=== PATIENT | male | born 1940 | race African-American/Black ===

== ENCOUNTER 2019-02-09 09:54 | Emergency (ER) | payer OTHER, BC ==
[2019-02-09 10:07] VITALS: TEMP 99.5; BMI 25.8
[2019-02-09] MEDS ORDERED: ALBUTEROL SO4 2.5/IPRATROPIUM 0.5 INH SOL 3 ML VIAL.NEB. NEB ONE ×3 (11:21→12:54)
[2019-02-09] MEDS ORDERED: methylPREDNISolone NA SUCC 125 MG/2 ML VIAL IVPB ONE (11:31)
--- NOTE | 2019-02-09 11:32 | PDOC ---
History of Present Illness <Jessi Galeana - Last Filed: 02/09/19 16:05> - General History Source: Patient Exam Limitations: No Limitations - History of Present Illness Initial Comments: 02/09/19 11:31 78 yo M with htn, hld, asthma, and gout presents with 2 weeks of worsening SOB and cough with acute worsening since last night. Per the patient, he states he has been using his albuterol nebulizer daily. In addition, the patient has had non productive cough for the past 2 weeks. Denies the following: fever, chills, chest pain, abdominal pain, nausea, vomiting, dysuria, hematuria, diarrhea, hematochezia, melena, and leg pain/swelling. Denies having a cardiac stress test in the past. Allergies: NKDA Social: Denies tobacco, alcohol, and substance abuse. <Leo Sanchez - Last Filed: 02/09/19 18:54> - General Chief Complaint: Shortness of Breath Stated Complaint: ASTHMA Time Seen by Provider: 02/09/19 10:34 Past History <Jessi Galeanajaecadence - Last Filed: 02/09/19 16:05> - Past Medical History Asthma: Yes Cardiac Disorders: Yes ([place] 2002) COPD: No HTN: Yes Hypercholesterolemia: Yes - Surgical History Orthopedic Surgery: Yes (epidural) - Psycho Social/Smoking Cessation Hx Smoking Status: No Smoking History: Current every day smoker Have you smoked in the past 12 months: Yes Number of Cigarettes Smoked Daily: 3 If you are a former smoker, when did you quit?: 2016 Information on smoking cessation initiated: Yes 'Breaking Loose' booklet given: 05/15/15 Hx Alcohol Use: No Drug/Substance Use Hx: No Substance Use Type: Alcohol Hx Substance Use Treatment: No <Leo Sanchez - Last Filed: 02/09/19 18:54> - Past Medical History Allergies/Adverse Reactions: Allergies Allergy/AdvReac Type Severity Reaction Status Date / Time No Known Allergies Allergy Verified 02/09/19 10:03 Home Medications: Ambulatory Orders Diclofenac Sodium/Misoprostol [Arthrotec EC 75 mg-200 Mcg Tab] 1 each PO BID #0 tablet. 08/12/11 Gabapentin [Neurontin -] 300 mg PO TID #0 capsule 08/12/11 Montelukast Na [Singulair -] 10 mg PO HS #0 tablet 08/12/11 Nisoldipine 8.5 mg PO DAILY #0 tab.er.24h 08/12/11 Atorvastatin Ca [Lipitor] 40 mg PO HS 05/15/15 Fluticasone Propionate [Flovent Hfa] 10.6 gm IH DAILY 05/15/15 Albuterol Sulfate Inhaler - [Ventolin HFA Inhaler -] 1 inh IH Q4H #1 inh Azithromycin 500 mg PO DAILY #2 tablet 05/19/15 Cefuroxime Axetil [Ceftin] 500 mg PO BID #4 tablet 05/19/15 Magnesium Oxide [Mag-Ox -] 400 mg PO DAILY #7 tablet 05/19/15 predniSONE [Deltasone -] 40 mg PO BID #14 tablet 05/19/15 Albuterol 0.083% Nebulizer Yanira [Ventolin 0.083% Nebulizer Soln -] 1 neb NEB Q6H PRN #28 vial 02/09/19 Albuterol Sulfate Inhaler - [Ventolin HFA Inhaler -] 1 - 2 inh PO Q4H PRN #1 inhaler 02/09/19 Prednisone [Prednisone 50 MG TABLETS] 50 mg PO DAILY 4 Days #4 tablet 02/09/19 Review of Systems - Review of Systems Able to Perform ROS?: Yes Is the patient limited [place] proficient: No Constitutional: No: Chills, Diaphoresis, Fever HEENTM: No: Eye Pain, Ear Pain, Nose Pain, Throat Pain, Mouth Pain Respiratory: Yes: Cough, Shortness of Breath. No: Hemoptysis Cardiac (ROS): No: Chest Pain, Lightheadedness, Palpitations, Syncope, Chest Tightness ABD/GI: No: Constipated, Diarrhea, Nausea, Rectal Bleeding, Vomiting, Tarry Stools : No: Burning, Dysuria, Hematuria, Incontinence, Pain Musculoskeletal: No: Back Pain, Gout, Joint Pain Integumentary: No: Bruising, Flushing, Lesions Neurological: No: Headache, Numbness, Tingling, Tremors Psychiatric: No: Change in Appetite Endocrine: No: Unexplained Weight Loss Hematologic/Lymphatic: No: Anemia <Leo Sanchez - Last Filed: 02/09/19 18:54> *Physical Exam - Vital Signs Last Vital Signs Temp Pulse Resp BP Pulse Ox 99.5 F 101 H 22 H 158/80 97 02/09/19 10:03 02/09/19 10:03 02/09/19 10:03 02/09/19 10:03 02/09/19 10:03 <LissettJessi Stephen - Last Filed: 02/09/19 16:05> - Vital Signs Last Vital Signs Temp Pulse Resp BP Pulse Ox 99.5 F 101 H 22 H 158/80 97 02/09/19 10:03 02/09/19 10:03 02/09/19 10:03 02/09/19 10:03 02/09/19 10:03 - Physical Exam General Appearance: Yes: Nourished, Appropriately Dressed. No: Apparent Distress, Obese HEENT: positive: EOMI, SOWMYA, Normal Voice, Symmetrical, Pharynx Normal, Hearing Grossly Normal. negative: Pale Conjunctivae, Scleral Icterus (R), Scleral Icterus (L), Muffled/Hoarse voice, Pharyngeal Erythema, Tonsillar Exudate, Tonsillar Erythema, Excessive drooling Neck: positive: Trachea midline, Supple. negative: Tender, Lymphadenopathy (R) , Lymphadenopathy (L), Tender lateral, Tender midline Respiratory/Chest: positive: Rhonchi (right side lower lung), Wheezing ( bilaterally). negative: Chest Tender, Respiratory Distress, Accessory Muscle Use Cardiovascular: positive: Regular Rhythm, Regular Rate, S1, S2. negative: Systolic Murmur Gastrointestinal/Abdominal: positive: Normal Bowel Sounds, Flat, Soft. negative : Tender, Rebound, Tenderness, Hernia Lymphatic: negative: Adenopathy Musculoskeletal: positive: Normal Inspection. negative: CVA Tenderness, Vertebral Tenderness Extremity: positive: Normal Capillary Refill, Normal Inspection, Normal Range of Motion. negative: Tender, Swelling, Calf Tenderness Integumentary: positive: Normal Color, Dry, Warm. negative: Hives, Petechiae, Swelling, Ecchymosis Neurologic: positive: sales rep II-XII NML intact, Fully Oriented, Alert, Normal Mood/ Affect, Normal Response, Motor Strength 5/5 <Leo Sanchez - Last Filed: 02/09/19 18:54> ED Treatment Course - LABORATORY CBC & Chemistry Diagram: 02/09/19 12:55 02/09/19 12:55 - ADDITIONAL ORDERS Additional order review: Laboratory Results 02/09/19 02/09/19 12:55 12:55 Sodium 142 Potassium 5.1 Chloride 114 H Carbon Dioxide 21 Anion Gap 7 L BUN 29.1 H Creatinine 2.7 H Est GFR (CKD-EPI)AfAm 24.86 Est GFR (CKD-EPI)NonAf 21.45 Random Glucose 112 H Lactic Acid 1.5 Calcium 8.7 Total Bilirubin 0.5 AST 11 L ALT 16 Alkaline Phosphatase 237 H Creatine Kinase 382 H Creatine Kinase Index 0.6 CK-MB (CK-2) 2.4 Troponin I < 0.02 B-Natriuretic Peptide 72.9 Total Protein 7.4 Albumin 3.8 02/09/19 12:55 RBC 4.12 MCV 95.8 MCHC 32.6 RDW 14.7 MPV 9.1 D Neutrophils % 75.0 Lymphocytes % 15.0 Monocytes % 5.7 D Eosinophils % 3.1 D Basophils % 1.2 D - RADIOLOGY Radiology Studies Ordered: Category Date Time Status CHEST PA & LAT [RAD] Stat Radiology 02/09/19 10:35 Completed - Medications Given in the ED: ED Medications Discontinued Medications Generic Name Dose Route Start Last Admin Trade Name David PRN Reason Stop Dose Admin Albuterol/Ipratropium 3 amp 02/09/19 11:21 02/09/19 13:08 Duoneb - NEB 02/09/19 11:22 3 amp ONCE ONE Administration Methylprednisolone Sodium Succinate 125 mg 02/09/19 11:31 02/09/19 13:08 Solu-Medrol - IVPB 02/09/19 11:32 125 mg ONCE ONE Administration <Jessi Galeana - Last Filed: 02/09/19 16:05> - LABORATORY CBC & Chemistry Diagram: 02/09/19 12:55 02/09/19 12:55 <Leo Sanchez - Last Filed: 02/09/19 18:54> Medical Decision Making - Medical Decision Making 02/09/19 13:16 78 yo M with htn, hld, asthma, and gout presents with 2 weeks of worsening SOB and cough with acute worsening since last night. Per the patient, he states he has been using his albuterol nebulizer daily. Initial vitals: Initial Vital Signs Temp Pulse Resp BP Pulse Ox 99.5 F 101 H 22 H 158/80 97 02/09/19 10:03 02/09/19 10:03 02/09/19 10:03 02/09/19 10:03 02/09/19 10:03 98.7 F on rectal Work up: rule out pna. rule out acs. patient given duoneb x3 and solumedrol. Laboratory Tests 02/09/19 02/09/19 02/09/19 12:55 12:55 12:55 WBC 7.6 RBC 4.12 Hgb 12.9 Hct 39.5 D MCV 95.8 MCH 31.2 MCHC 32.6 RDW 14.7 Plt Count 257 MPV 9.1 D Absolute Neuts (auto) 5.7 Neutrophils % 75.0 Lymphocytes % 15.0 Monocytes % 5.7 D Eosinophils % 3.1 D Basophils % 1.2 D Nucleated RBC % 0 Sodium 142 Potassium 5.1 Chloride 114 H Carbon Dioxide 21 Anion Gap 7 L BUN 29.1 H Creatinine 2.7 H Est GFR (CKD-EPI)AfAm 24.86 Est GFR (CKD-EPI)NonAf 21.45 Random Glucose 112 H Lactic Acid Calcium 8.7 Total Bilirubin 0.5 AST 11 L ALT 16 Alkaline Phosphatase 237 H Creatine Kinase 382 H Creatine Kinase Index 0.6 CK-MB (CK-2) 2.4 Troponin I < 0.02 B-Natriuretic Peptide 72.9 Total Protein 7.4 Albumin 3.8 Influenza A (Rapid) Negative Influenza B (Rapid) Negative 02/09/19 12:55 WBC RBC Hgb Hct MCV MCH MCHC RDW Plt Count MPV Absolute Neuts (auto) Neutrophils % Lymphocytes % Monocytes % Eosinophils % Basophils % Nucleated RBC % Sodium Potassium Chloride Carbon Dioxide Anion Gap BUN Creatinine Est GFR (CKD-EPI)AfAm Est GFR (CKD-EPI)NonAf Random Glucose Lactic Acid 1.5 Calcium Total Bilirubin AST ALT Alkaline Phosphatase Creatine Kinase Creatine Kinase Index CK-MB (CK-2) Troponin I B-Natriuretic Peptide Total Protein Albumin Influenza A (Rapid) Influenza B (Rapid) CXR was within normal limits; no acute process. The patient improved with duonebs. Lungs were clear to auscultation. Labs show KENYON but he is near baseline. I advised the patient to stop his celebrex given the KENYON. Patient was given prednisone in the department and advised to follow up with his PMD (Dr. Aaron). Dispo: Discharge <Leo Sanchez - Last Filed: 02/09/19 18:54> Discharge - Discharge Information Problems reviewed: Yes - Admission No <Jessi Galeana - Last Filed: 02/09/19 16:05> - Discharge Information Problems reviewed: Yes <Leo Sanchez - Last Filed: 02/09/19 18:54> - Discharge Information Clinical Impression/Diagnosis: Asthma Qualifiers: Asthma severity: unspecified severity Asthma persistence: unspecified Asthma complication type: unspecified Qualified Code(s): J45.909 - Unspecified asthma, uncomplicated Acute bronchitis Qualifiers: Bronchitis organism: other organism Qualified Code(s): J20.8 - Acute bronchitis due to other specified organisms Condition: Improved Disposition: HOME - Additional Discharge Information Prescriptions: Albuterol 0.083% Nebulizer Yanira [Ventolin 0.083% Nebulizer Soln -] 1 neb NEB Q6H PRN #28 vial PRN Reason: Asthma Albuterol Sulfate Inhaler - [Ventolin HFA Inhaler -] 1 - 2 inh PO Q4H PRN #1 inhaler PRN Reason: Asthma Prednisone [Prednisone 50 MG TABLETS] 50 mg PO DAILY 4 Days #4 tablet - Follow up/Referral Referrals: Skip Aaron MD [Primary Care Provider] - - Patient Discharge Instructions Patient Printed Discharge Instructions: DI for Asthma -- Adult, DI for Acute Bronchitis Additional Instructions: 1) Please follow-up with your primary care doctor in the next 1-2 days. Please call tomorrow for for any urgent issues. 2) You were given a copy of the tests performed today. Please bring the results with you and review them with your primary care doctor. Your laboratory / imaging results were normal, 3) If you have any worsening of symptoms or any other concerns please return to the ED immediately. Return if worsening symptoms including fevers, headache, vomiting, visual or hearing disturbances, abdominal pain, chest pain, shortness of breath, syncope, dehydration, inability to take things by mouth/vomiting, altered mental status, or worsening concerning symptoms. 4) Please continue taking your home medications as directed. your medications on discharge include prednisone x 4 more days. . side effects may include upset stomach, abdominal pain, vomiting, or diarrhea. do not drink alcohol with your medications. Stay well hydrated and rest adequately. Make an appointment. If you cannot follow-up with your primary care doctor please return to the ED - Post Discharge Activity
[2019-02-09] MEDS ORDERED: methylPREDNISolone NA SUCC 125 MG/2 ML VIAL ONE (12:50)
--- NOTE | 2019-02-09 12:55 | PDOC ---
Attending Attestation - Resident Resident Name: Leo Sanchez - ED Attending Attestation I have performed the following: I have examined & evaluated the patient, The case was reviewed & discussed with the resident, I agree w/resident's findings & plan - HPI HPI: 02/09/19 12:55 78 yo M with htn, hld, asthma, and gout, pneumonia presents with 2 weeks of worsening SOB and cough with acute worsening since last night. Per the patient, he states he has been using his albuterol nebulizer daily. 02/09/19 13:50 - Physicial Exam PE: 02/09/19 12:55 Agree with the resident's HPI and PE as documented in the electronic medical record. NAD, well appearing, EOMI, PERRL, nl conjunctiva, anicteric; neck supple.bilateral expiratory wheezing, no murmurs, RRR, abdomen soft nontender. no rebound, guarding. Back nontender. LUIS x4, no focal neuro deficits. No peripheral edema. normal color for ethnicity, WWP. no calf tenderness - Medical Decision Making 02/09/19 12:56 Vital Signs Temp Pulse Resp BP Pulse Ox 99.5 F 101 H 22 H 158/80 97 02/09/19 10:03 02/09/19 10:03 02/09/19 10:03 02/09/19 10:03 02/09/19 10:03 DDx SOB: ACS, PE, PTX, CHF, COPD exac, pulmonary edema, pleurisy, pneumonia, viral syndrome. effusion. anemia, electrolyte/metabolic derangements. influenza. Considered but clinically doubt based on HPI and PE: Low suspicion for pulmonary embolism or dissection. Interventions include albuterol/Atrovent nebulizers for acute wheezing/asthma exacerbation. IV Solu-Medrol, reassess. 02/09/19 12:56 CXR clear, no e/o pna labs and lytes_baseline Cr function, lytes normal. CBC normal. trop neg bnp neg, unlikely cardiomyopathy or CHF/overload. less likely cardiac, no cp or sob, speaking full sentences. Pt to be discharged in stable condition. Patient and family made aware of clinical impression, treatment recommendations and disposition plan, return precautions discussed (including but not limited to new or persistent/worsening symptoms, pain, fevers, or signs of infection, chest pain, respiratory distress , inability to tolerate oral intake, dehydration, syncope, or neurologic changes ). Follow up with PMD as recommended, follow up information provided, take medications as instructed for duration of time. continue with supportive care, avoid triggers and precipitants. All questions answered to patient's satisfaction and expressed understanding and comfort with this. At the time of discharge, the patient is alert, clinically improved, tolerating po and verbalizes understanding of instructions, satisfied with the care received and felt comfortable with the plan. Patient does not suffer from an acute life- threatening medical condition at this time and is safe for outpatient follow- up. 02/09/19 14:01 02/09/19 16:25 Heart Score/ECG Review #1 ECG reviewed & interpreted by me at: 10:05 General ECG Interpretation: Sinus Rhythm, Normal Intervals Compared to previous ECG there are: Previous ECG unavail 02/09/19 12:57 EKG sinus tachy at 107 bpm, no interval abnormalities, narrow QRS, ST and T wave segments and morphology normal. Nonspecific T wave abnormalities some limitations with artifact.
[2019-02-09 13:19] LABS: BASO % 1.2 % (0-2.0); EOS % 3.1 % (0-4.5); HEMATOCRIT 39.5 % (35.4-49); HEMOGLOBIN 12.9 GM/dL (11.7-16.9); MCH 31.2 pg (25.7-33.7); MCHC 32.6 g/dl (32.0-35.9); MEAN CELL VOLUME 95.8 fl (80-96); MEAN PLT VOLUME 9.1 fl (7.5-11.1); MONO % 5.7 % (3.8-10.2); PLATELET COUNT 257 K/MM3 (134-434); RBC 4.12 M/mm3 (4.00-5.60); RDW 14.7 % (11.9-15.9); WHITE BLOOD COUNT 7.6 K/mm3 (4.0-10.0)
[2019-02-09 13:57] LABS: ALBUMIN 3.8 g/dl (3.4-5.0); ALK PHOS 237 U/L (45-117); ANION GAP 7 MMOL/L (8-16); BILIRUBIN,TOTAL 0.5 mg/dL (0.2-1); BLOOD UREA NITROGEN 29.1 mg/dL (7-18); CALCIUM 8.7 mg/dL (8.5-10.1); CHLORIDE 114 mmol/L (98-107); CO2 21 mmol/L (21-32); CREATININE 2.7 mg/dL (0.55-1.3); GLUCOSE,RANDOM 112 mg/dL (74-106); N-TERMINAL BNP 72.9 pg/ml (5-450); POTASSIUM 5.1 mmol/L (3.5-5.1); SGOT/AST 11 U/L (15-37); SGPT/ALT 16 U/L (13-61); SODIUM 142 mmol/L (136-145); TOT PROT 7.4 g/dl (6.4-8.2)
[2019-02-09] MEDS ORDERED: SODIUM CHLORIDE 1,000 ML IV STA (14:41)
[2019-02-09] MEDS ORDERED: predniSONE 20 MG TABLET (UD) PO ONE (16:05)
[2019-02-09 16:12] VITALS: BP 145/75; PULSE 94
[2019-02-09] MEDS ORDERED: predniSONE 20 MG TABLET (UD) ONE (16:37)
[2019-02-09] MEDS ORDERED: predniSONE 10 MG TABLET (UD) ONE (16:38)
--- NOTE | 2019-02-11 10:15 | EKG ---
Test Reason : Blood Pressure : / mmHG Vent. Rate : 107 BPM Atrial Rate : 105 BPM P-R Int : 000 ms QRS Dur : 072 ms QT Int : 318 ms P-R-T Axes : 000 005 062 degrees QTc Int : 424 ms SINUS TACHYCARDIA NONSPECIFIC ST AND T WAVE ABNORMALITY ABNORMAL ECG WHEN COMPARED WITH ECG OF 16-MAY-2015 13:17, VENT. RATE HAS INCREASED Confirmed by FRANCO PETERSON MD ([id number]) on 02/11/2019 10:14:53 AM Referred By: Confirmed By:FRANCO PEETRSON MD
== END 2019-02-09 16:30 | disposition home or self-care (01) ==
LOC: JER 09:54
PROC: 3E0F7GC Introduction of Other Therapeutic Substance into Respiratory Tract, Via Natural or Artificial Opening (ICD-10-PCS; principal; 2019-02-09)
PROC: 3E0337Z Introduction of Electrolytic and Water Balance Substance into Peripheral Vein, Percutaneous Approach (ICD-10-PCS; 2019-02-09)
PROC: 3E0333Z Introduction of Anti-inflammatory into Peripheral Vein, Percutaneous Approach (ICD-10-PCS; 2019-02-09)
DX: J20.8 Acute bronchitis due to other specified organisms (principal); J45.909 Unspecified asthma, uncomplicated; I25.10 Atherosclerotic heart disease of native coronary artery without angina pectoris; I10 Essential (primary) hypertension; I25.2 Old myocardial infarction; E78.00 Pure hypercholesterolemia, unspecified; M10.9 Gout, unspecified; F17.210 Nicotine dependence, cigarettes, uncomplicated
CPT/HCPCS: 36415; 71046-TC-FY; 80053; 82550; 82553; 83605; 83880; 84484; 85025; 87804; 93005; 93010; 94640; 96361; 96374; 99283-25; J7030

== ENCOUNTER 2020-09-30 18:50 | Inpatient (IN) | payer OTHER, BC ==
[2020-09-30 19:37] VITALS: BMI 21.5
[2020-09-30] MEDS ORDERED: SODIUM CHLORIDE 0.9% 500 ML INFUS.BAG IV ONE (20:03)
[2020-09-30 20:53] LABS: BASO % 0.9 % (0-2.0); EOS % 0.2 % (0-4.5); HEMATOCRIT 35.4 % (35.4-49); HEMOGLOBIN 11.6 GM/dL (11.7-16.9); LYMPH % 21.7 % (8-40); MCH 32.9 pg (25.7-33.7); MCHC 32.6 g/dl (32.0-35.9); MEAN CELL VOLUME 100.7 fl (80-96); MEAN PLT VOLUME 8.7 fl (7.5-11.1); MONO % 9.2 % (3.8-10.2); PLATELET COUNT 208 10^3/uL (134-434); RBC 3.51 M/mm3 (4.00-5.60); RDW 13.4 % (11.9-15.9); WHITE BLOOD COUNT 8.9 K/mm3 (4.0-10.0)
[2020-09-30 21:05] LABS: INR 0.96 (0.83-1.09); PROTHROMBIN TIME (PATIENT) 11.6 SEC (9.7-13.0)
[2020-09-30 21:11] LABS: CHLORIDE 101 mmol/L (98-107); SODIUM 132 mmol/L (136-145)
[2020-09-30 21:13] LABS: ALBUMIN 3.2 g/dl (3.4-5.0); CALCIUM 7.4 mg/dL (8.5-10.1); CO2 11 mmol/L (21-32)
[2020-09-30 21:14] LABS: BLOOD UREA NITROGEN 97.6 mg/dL (7-18); GLUCOSE,RANDOM 115 mg/dL (74-106)
[2020-09-30] MEDS ORDERED: LACTATED RINGERS SOLUTION 1000 ML INFUS.BAG IV ONE (21:16)
[2020-09-30 21:17] LABS: SGOT/AST 49 U/L (15-37); SGPT/ALT 45 U/L (13-61)
[2020-09-30 21:18] LABS: BILIRUBIN,TOTAL 0.5 mg/dL (0.2-1); TOT PROT 6.3 g/dl (6.4-8.2)
[2020-09-30 21:19] LABS: ALK PHOS 132 U/L (45-117)
[2020-09-30 21:58] LABS: ANION GAP 20 MMOL/L (8-16)
[2020-09-30 23:34] LABS: CALCIUM 7.5 mg/dL (8.5-10.1)
[2020-09-30 23:35] LABS: BLOOD UREA NITROGEN 87.4 mg/dL (7-18)
[2020-10-01] MEDS ORDERED: DEXTROSE 5%-LACTATED RINGERS 1,000 ML IV SCH (01:30)
[2020-10-01] MEDS ORDERED: LACTATED RINGERS SOLUTION 1000 ML INFUS.BAG IV ONE (01:34)
[2020-10-01 01:42] LABS: URINE APPEARANCE CLEAR; URINE BILIRUBIN NEGATIVE (NEGATIVE); URINE COLOR YELLOW; URINE GLUCOSE (UA) NEGATIVE (NEGATIVE); URINE KETONE 1+ (NEGATIVE); URINE LEUK ESTERASE NEGATIVE (NEGATIVE); URINE NITRITE NEGATIVE (NEGATIVE); URINE PROTEIN NEGATIVE (NEGATIVE)
[2020-10-01] MEDS ORDERED: ALBUTEROL SO4 0.083% IH SOL 2.5 MG/3 ML VIAL.NEB. NEB PRN (08:09)
[2020-10-01] MEDS ORDERED: TAMSULOSIN HCL 0.4 MG CAP ONE (08:44)
[2020-10-01] MEDS: TAMSULOSIN HCL 0.4 MG CAP PO SCH (08:46)
[2020-10-01] MEDS ORDERED: amLODIPine BESYLATE 5 MG TABLET (FP) PO SCH (10:00)
[2020-10-01] MEDS: BUDESONIDE/FORMETEROL FUMARATE 160/4.5 mcg INHALER IH SCH (10:05)
[2020-10-01] MEDS ORDERED: ENOXAPARIN NA (PORCINE) 30 MG/0.3 ML DISP.SYRIN SQ ONE (12:18)
[2020-10-01] MEDS: ENOXAPARIN NA (PORCINE) 30 MG/0.3 ML DISP.SYRIN SQ SCH (12:20)
[2020-10-01] MEDS: INSULIN SLIDING SCALE (NOVOLOG) 1 VIAL SQ SCH ×3 (12:21→21:24)
[2020-10-01] MEDS ORDERED: FLU VACCINE (FLULAVAL) PF 60 MCG/0.5 ML SYRINGE 2020-2021 IM ONE (16:19)
[2020-10-01] MEDS: SODIUM CHLORIDE 0.45% 1,000 ML IV SCH (17:52)
[2020-10-01] MEDS ORDERED: SODIUM CHLORIDE 1,000 ML IV STA (19:03)
[2020-10-01] MEDS ORDERED: CALCIUM GLUCONATE IN NACL 1 GM/50 ML BAG IVPB ONE (19:06)
[2020-10-01] MEDS ORDERED: SODIUM BICARBONATE 8.4% 50 MEQ/50 ML DISP.SYRIN IVPUSH ONE (19:06)
[2020-10-01] MEDS ORDERED: SODIUM ZIRCONIUM CYCLOSILICATE (LOKELMA) 5 GM PACKET PO SCH (19:15)
[2020-10-01 20:24] LABS: BLOOD UREA NITROGEN 83.2 mg/dL (7-18); CALCIUM 8.2 mg/dL (8.5-10.1)
[2020-10-01 20:28] LABS: CREATININE 2.5 mg/dL (0.55-1.3)
[2020-10-01] MEDS: SODIUM BICARBONATE 650 MG TABLET PO SCH ×2 (20:31→21:18)
[2020-10-01 21:01] LABS: ALLENS TEST POSITIVE; ARTERIAL BLD GAS O2 SATURATION 97.8 mmHg (95-98); ARTERIAL BLOOD GAS BASE EXCESS -7.3 mmol/L (-2-2); ARTERIAL BLOOD GAS PO2 103.6 mmHg (80-100); ARTERIAL BLOOD GAS pH 7.383 (7.350-7.450)
[2020-10-01 21:02] LABS: PT'S TEMP 98.4
[2020-10-01] MEDS: ATORVASTATIN CA 40 MG TABLET (FP) PO SCH (21:18)
[2020-10-01] MEDS: MONTELUKAST NA 10 MG TABLET PO SCH (21:18)
[2020-10-02] MEDS: SODIUM BICARBONATE 650 MG TABLET PO SCH ×2 (05:03→13:37)
[2020-10-02] MEDS: INSULIN SLIDING SCALE (NOVOLOG) 1 VIAL SQ SCH ×3 (06:47→17:42)
[2020-10-02 08:12] LABS: BASO % 1.4 % (0-2.0); EOS % 1.7 % (0-4.5); HEMATOCRIT 33.8 % (35.4-49); HEMOGLOBIN 11.2 GM/dL (11.7-16.9); LYMPH % 43.8 % (8-40); MCH 32.3 pg (25.7-33.7); MCHC 33.3 g/dl (32.0-35.9); MEAN CELL VOLUME 97.2 fl (80-96); MEAN PLT VOLUME 8.8 fl (7.5-11.1); MONO % 9.9 % (3.8-10.2); NEUT % 43.2 % (42.8-82.8); PLATELET COUNT 190 10^3/uL (134-434); RBC 3.48 M/mm3 (4.00-5.60); RDW 13.2 % (11.9-15.9); WHITE BLOOD COUNT 6.2 K/mm3 (4.0-10.0)
[2020-10-02 08:31] LABS: BASO % 1.3 % (0-2.0); EOS % 2.1 % (0-4.5); HEMATOCRIT 35.7 % (35.4-49); HEMOGLOBIN 11.5 GM/dL (11.7-16.9); LYMPH % 40.1 % (8-40); MCH 32.2 pg (25.7-33.7); MCHC 32.4 g/dl (32.0-35.9); MEAN CELL VOLUME 99.5 fl (80-96); MEAN PLT VOLUME 8.7 fl (7.5-11.1); MONO % 9.5 % (3.8-10.2); PLATELET COUNT 179 10^3/uL (134-434); RBC 3.59 M/mm3 (4.00-5.60); RDW 13.5 % (11.9-15.9); WHITE BLOOD COUNT 5.2 K/mm3 (4.0-10.0)
[2020-10-02] MEDS ORDERED: PT OWN MED DRAWER 7, Y5N ONE ×2 (08:33→11:24)
[2020-10-02 08:36] LABS: CALCIUM 8.3 mg/dL (8.5-10.1)
[2020-10-02 08:37] LABS: ALBUMIN 2.8 g/dl (3.4-5.0); BLOOD UREA NITROGEN 63.1 mg/dL (7-18)
[2020-10-02 08:40] LABS: CREATININE 2.1 mg/dL (0.55-1.3)
[2020-10-02 08:41] LABS: BILIRUBIN,TOTAL 0.7 mg/dL (0.2-1); TOT PROT 5.8 g/dl (6.4-8.2)
[2020-10-02 08:54] LABS: ALBUMIN 3.1 g/dl (3.4-5.0); BLOOD UREA NITROGEN 71.4 mg/dL (7-18)
[2020-10-02 08:58] LABS: CREATININE 2.1 mg/dL (0.55-1.3)
[2020-10-02 08:59] LABS: BILIRUBIN,TOTAL 0.8 mg/dL (0.2-1)
[2020-10-02 09:02] LABS: CALCIUM 8.7 mg/dL (8.5-10.1); N-TERMINAL BNP 1960.5 pg/ml (5-450)
[2020-10-02] MEDS: TAMSULOSIN HCL 0.4 MG CAP PO SCH (09:51)
[2020-10-02] MEDS: ENOXAPARIN NA (PORCINE) 30 MG/0.3 ML DISP.SYRIN SQ SCH (09:51)
[2020-10-02] MEDS: BUDESONIDE/FORMETEROL FUMARATE 160/4.5 mcg INHALER IH SCH (11:42)
[2020-10-02] MEDS: SODIUM CHLORIDE 0.45% 1,000 ML IV SCH (17:42)
[2020-10-02] MEDS: MONTELUKAST NA 10 MG TABLET PO SCH (21:15)
[2020-10-02] MEDS: ATORVASTATIN CA 40 MG TABLET (FP) PO SCH (21:15)
[2020-10-03] MEDS: INSULIN SLIDING SCALE (NOVOLOG) 1 VIAL SQ SCH ×2 (06:33→16:02)
[2020-10-03 08:23] LABS: CHLORIDE 109 mmol/L (98-107); SODIUM 139 mmol/L (136-145)
[2020-10-03 08:33] LABS: CALCIUM 8.3 mg/dL (8.5-10.1)
[2020-10-03] MEDS: ENOXAPARIN NA (PORCINE) 30 MG/0.3 ML DISP.SYRIN SQ SCH ×2 (08:33→09:25)
[2020-10-03] MEDS: BUDESONIDE/FORMETEROL FUMARATE 160/4.5 mcg INHALER IH SCH ×2 (08:33→09:25)
[2020-10-03] MEDS: TAMSULOSIN HCL 0.4 MG CAP PO SCH (08:33)
[2020-10-03 08:34] LABS: ALBUMIN 3.1 g/dl (3.4-5.0); ANION GAP 10 MMOL/L (8-16); BLOOD UREA NITROGEN 48.7 mg/dL (7-18); CO2 20 mmol/L (21-32); GLUCOSE,RANDOM 77 mg/dL (74-106)
[2020-10-03 08:36] LABS: CREATININE 1.7 mg/dL (0.55-1.3); SGOT/AST 39 U/L (15-37); SGPT/ALT 37 U/L (13-61)
[2020-10-03 08:39] LABS: ALK PHOS 119 U/L (45-117)
[2020-10-03 08:40] LABS: BILIRUBIN,TOTAL 0.8 mg/dL (0.2-1)
[2020-10-03] MEDS: SODIUM CHLORIDE 0.45% 1,000 ML IV SCH (18:01)
[2020-10-03] MEDS: ATORVASTATIN CA 40 MG TABLET (FP) PO SCH (22:36)
[2020-10-03] MEDS: MONTELUKAST NA 10 MG TABLET PO SCH (22:36)
[2020-10-04] MEDS: INSULIN SLIDING SCALE (NOVOLOG) 1 VIAL SQ SCH ×2 (06:25→18:47)
[2020-10-04] MEDS ORDERED: ACETAMINOPHEN 325 MG TABLET (FP) ONE (08:27)
[2020-10-04] MEDS: ENOXAPARIN NA (PORCINE) 30 MG/0.3 ML DISP.SYRIN SQ SCH (09:16)
[2020-10-04] MEDS: TAMSULOSIN HCL 0.4 MG CAP PO SCH (09:17)
[2020-10-04] MEDS: BUDESONIDE/FORMETEROL FUMARATE 160/4.5 mcg INHALER IH SCH (09:17)
[2020-10-04] MEDS: SODIUM CHLORIDE 0.45% 1,000 ML IV SCH ×2 (12:28→18:41)
[2020-10-04] MEDS: MONTELUKAST NA 10 MG TABLET PO SCH (22:20)
[2020-10-04] MEDS: ATORVASTATIN CA 40 MG TABLET (FP) PO SCH (22:20)
[2020-10-05] MEDS: INSULIN SLIDING SCALE (NOVOLOG) 1 VIAL SQ SCH ×2 (06:16→18:12)
[2020-10-05 06:54] LABS: BASO % 1.1 % (0-2.0); EOS % 2.9 % (0-4.5); HEMATOCRIT 29.5 % (35.4-49); LYMPH % 31.7 % (8-40); MCH 32.8 pg (25.7-33.7); MCHC 33.8 g/dl (32.0-35.9); MEAN PLT VOLUME 9.1 fl (7.5-11.1); MONO % 8.4 % (3.8-10.2); NEUT % 55.9 % (42.8-82.8); PLATELET COUNT 148 10^3/uL (134-434); RBC 3.04 M/mm3 (4.00-5.60); RDW 13.2 % (11.9-15.9); WHITE BLOOD COUNT 5.9 K/mm3 (4.0-10.0)
[2020-10-05 07:17] LABS: ALBUMIN 2.6 g/dl (3.4-5.0)
[2020-10-05 07:18] LABS: CALCIUM 7.5 mg/dL (8.5-10.1)
[2020-10-05 07:21] LABS: CREATININE 1.3 mg/dL (0.55-1.3)
[2020-10-05 07:22] LABS: BLOOD UREA NITROGEN 34.1 mg/dL (7-18)
[2020-10-05 07:23] LABS: BILIRUBIN,TOTAL 0.7 mg/dL (0.2-1); TOT PROT 5.1 g/dl (6.4-8.2)
[2020-10-05] MEDS: ENOXAPARIN NA (PORCINE) 30 MG/0.3 ML DISP.SYRIN SQ SCH (09:36)
[2020-10-05] MEDS: TAMSULOSIN HCL 0.4 MG CAP PO SCH (09:36)
[2020-10-05] MEDS: BUDESONIDE/FORMETEROL FUMARATE 160/4.5 mcg INHALER IH SCH (09:37)
[2020-10-05] MEDS ORDERED: POTASSIUM CHLORIDE TABS 20 MEQ TABLET.ER (FP) PO ONE (11:02)
[2020-10-05] MEDS: SODIUM BICARBONATE 325 MG TABLET PO SCH (11:27)
[2020-10-05] MEDS: ATORVASTATIN CA 40 MG TABLET (FP) PO SCH (21:03)
[2020-10-05] MEDS: MONTELUKAST NA 10 MG TABLET PO SCH (21:03)
[2020-10-05] MEDS: ACETAMINOPHEN 325 MG TABLET (FP) PO PRN (22:17)
[2020-10-06] MEDS: INSULIN SLIDING SCALE (NOVOLOG) 1 VIAL SQ SCH ×2 (06:29→17:47)
[2020-10-06 07:39] LABS: CALCIUM 7.3 mg/dL (8.5-10.1)
[2020-10-06 07:40] LABS: ALBUMIN 2.7 g/dl (3.4-5.0)
[2020-10-06 07:45] LABS: TOT PROT 5.3 g/dl (6.4-8.2)
[2020-10-06 07:48] LABS: CREATININE 1.4 mg/dL (0.55-1.3)
[2020-10-06] MEDS ORDERED: PT OWN MED DRAWER 7, Y5N ONE ×2 (08:35→10:33)
[2020-10-06] MEDS: ENOXAPARIN NA (PORCINE) 30 MG/0.3 ML DISP.SYRIN SQ SCH (09:20)
[2020-10-06] MEDS: TAMSULOSIN HCL 0.4 MG CAP PO SCH (09:20)
[2020-10-06] MEDS: BUDESONIDE/FORMETEROL FUMARATE 160/4.5 mcg INHALER IH SCH (09:20)
[2020-10-06] MEDS: SODIUM BICARBONATE 325 MG TABLET PO SCH (10:36)
[2020-10-06] MEDS: ACETAMINOPHEN 325 MG TABLET (FP) PO PRN ×2 (10:53→21:44)
[2020-10-06] MEDS: MONTELUKAST NA 10 MG TABLET PO SCH (21:43)
[2020-10-06] MEDS: ATORVASTATIN CA 40 MG TABLET (FP) PO SCH (21:44)
[2020-10-07] MEDS: INSULIN SLIDING SCALE (NOVOLOG) 1 VIAL SQ SCH ×2 (06:09→17:33)
[2020-10-07] MEDS ORDERED: PT OWN MED DRAWER 7, Y5N ONE (10:29)
[2020-10-07] MEDS: TAMSULOSIN HCL 0.4 MG CAP PO SCH (11:08)
[2020-10-07] MEDS: ENOXAPARIN NA (PORCINE) 30 MG/0.3 ML DISP.SYRIN SQ SCH (11:08)
[2020-10-07] MEDS: MULTIVITAMINS (DAILY MVI) TABLET (FP) PO SCH (11:08)
[2020-10-07] MEDS: SODIUM BICARBONATE 325 MG TABLET PO SCH ×2 (11:08→22:30)
[2020-10-07] MEDS: BUDESONIDE/FORMETEROL FUMARATE 160/4.5 mcg INHALER IH SCH (11:09)
[2020-10-07] MEDS: ACETAMINOPHEN 325 MG TABLET (FP) PO PRN (22:25)
[2020-10-07] MEDS: ATORVASTATIN CA 40 MG TABLET (FP) PO SCH (22:25)
[2020-10-07] MEDS: MONTELUKAST NA 10 MG TABLET PO SCH (22:25)
[2020-10-08] MEDS: ACETAMINOPHEN 325 MG TABLET (FP) PO PRN (05:54)
[2020-10-08] MEDS ORDERED: PT OWN MED DRAWER 7, Y5N ONE (09:18)
[2020-10-08] MEDS: INSULIN SLIDING SCALE (NOVOLOG) 1 VIAL SQ SCH (09:55)
[2020-10-08] MEDS: TAMSULOSIN HCL 0.4 MG CAP PO SCH (09:56)
[2020-10-08] MEDS: MULTIVITAMINS (DAILY MVI) TABLET (FP) PO SCH (09:56)
[2020-10-08] MEDS: SODIUM BICARBONATE 325 MG TABLET PO SCH (09:56)
[2020-10-08] MEDS: ENOXAPARIN NA (PORCINE) 30 MG/0.3 ML DISP.SYRIN SQ SCH (09:57)
[2020-10-08] MEDS: BUDESONIDE/FORMETEROL FUMARATE 160/4.5 mcg INHALER IH SCH (09:57)
[2020-10-08 19:35] VITALS: BP 84/43; PULSE 64; TEMP 98.7
== END 2020-10-08 19:00 | DRG 682 ==
LOC: JER 18:50 → JERBED 21:17 → J4W 10-01 15:25
PROVIDERS: ADMIT Internal Medicine; ATTEND Internal Medicine
DX: N17.9 Acute kidney failure, unspecified (principal); E43 Unspecified severe protein-calorie malnutrition; I13.0 Hypertensive heart and chronic kidney disease with heart failure and stage 1 through stage 4 chronic kidney disease, or unspecified chronic kidney disease; I50.32 Chronic diastolic (congestive) heart failure; E87.2 Acidosis; E86.0 Dehydration; E78.00 Pure hypercholesterolemia, unspecified; I95.9 Hypotension, unspecified; F17.210 Nicotine dependence, cigarettes, uncomplicated; R55 Syncope and collapse; F03.90 Unspecified dementia, unspecified severity, without behavioral disturbance, psychotic disturbance, mood disturbance, and anxiety; M10.9 Gout, unspecified; E83.51 Hypocalcemia; D64.9 Anemia, unspecified; E88.09 Other disorders of plasma-protein metabolism, not elsewhere classified; J44.9 Chronic obstructive pulmonary disease, unspecified; N18.9 Chronic kidney disease, unspecified; E87.5 Hyperkalemia; R41.82 Altered mental status, unspecified; Z68.21 Body mass index [BMI] 21.0-21.9, adult
CPT/HCPCS: 36415; 36600; 70450-TC; 71045-TC-FY; 72125-TC; 72170-TC-FY; 76775-TC; 80048; 80053; 80061; 81003; 82550; 82553; 82803; 82962; 83721; 83880; 84443; 84484; 85025; 85610; 87086; 93005; 93010; 93306-TC; 94640; 97116-GP; 97161-GP; 99285-25; C9803; U0003; U0005

== ENCOUNTER 2020-11-06 10:46 | Inpatient (IN) | payer OTHER, BC ==
[2020-11-06] MEDS ORDERED: LACTATED RINGERS SOLUTION 1000 ML INFUS.BAG IV ONE (11:35)
[2020-11-06 11:50] LABS: BASO % 0.7 % (0-2.0); EOS % 1.5 % (0-4.5); HEMATOCRIT 33.9 % (35.4-49); HEMOGLOBIN 11.2 GM/dL (11.7-16.9); LYMPH % 14.1 % (8-40); MCH 32.7 pg (25.7-33.7); MCHC 33.1 g/dl (32.0-35.9); MEAN CELL VOLUME 98.7 fl (80-96); MEAN PLT VOLUME 9.1 fl (7.5-11.1); NEUT % 76.7 % (42.8-82.8); PLATELET COUNT 249 10^3/uL (134-434); RBC 3.43 M/mm3 (4.00-5.60); RDW 13.7 % (11.9-15.9); WHITE BLOOD COUNT 10.7 K/mm3 (4.0-10.0)
[2020-11-06 11:55] LABS: INR 1.03 (0.83-1.09); PROTHROMBIN TIME (PATIENT) 12.5 SEC (9.7-13.0)
[2020-11-06 12:09] LABS: CHLORIDE 108 mmol/L (98-107); SODIUM 138 mmol/L (136-145)
[2020-11-06 12:11] LABS: CALCIUM 8.7 mg/dL (8.5-10.1)
[2020-11-06 12:12] LABS: ALBUMIN 3.6 g/dl (3.4-5.0); ANION GAP 13 MMOL/L (8-16); BLOOD UREA NITROGEN 78.8 mg/dL (7-18); CO2 17 mmol/L (21-32); GLUCOSE,RANDOM 87 mg/dL (74-106)
[2020-11-06 12:15] LABS: CREATININE 2.6 mg/dL (0.55-1.3); SGOT/AST 25 U/L (15-37); SGPT/ALT 32 U/L (13-61)
[2020-11-06 12:16] LABS: BILIRUBIN,TOTAL 0.5 mg/dL (0.2-1); TOT PROT 7.2 g/dl (6.4-8.2)
[2020-11-06 12:17] LABS: ALK PHOS 129 U/L (45-117)
[2020-11-06 15:08] LABS: N-TERMINAL BNP 511.6 pg/ml (5-450)
[2020-11-06 15:21] LABS: URINE APPEARANCE CLEAR; URINE BILIRUBIN NEGATIVE (NEGATIVE); URINE COLOR YELLOW; URINE GLUCOSE (UA) NEGATIVE (NEGATIVE); URINE KETONE TRACE (NEGATIVE); URINE LEUK ESTERASE NEGATIVE (NEGATIVE); URINE NITRITE NEGATIVE (NEGATIVE); URINE PROTEIN NEGATIVE (NEGATIVE); URINE UROBILINOGEN 0.2 mg/dL (0.2-1.0)
[2020-11-06] MEDS ORDERED: ALPRAZolam 1 MG TABLET PO PRN (21:59)
[2020-11-06] MEDS: DEXTROSE 5%-NORMAL SALINE 1,000 ML IV SCH (23:30)
[2020-11-07] MEDS ORDERED: ALPRAZolam 0.25 MG TABLET PO PRN (01:34)
[2020-11-07] MEDS ORDERED: ALBUTEROL SO4 0.083% IH SOL 2.5 MG/3 ML VIAL.NEB. NEB PRN (01:46)
[2020-11-07] MEDS ORDERED: SODIUM BICARBONATE 325 MG TABLET PO SCH (10:00)
[2020-11-07] MEDS: ENOXAPARIN NA (PORCINE) 30 MG/0.3 ML DISP.SYRIN SQ SCH (10:12)
[2020-11-07] MEDS: TAMSULOSIN HCL 0.4 MG CAP PO SCH (10:12)
[2020-11-07] MEDS: amLODIPine BESYLATE 5 MG TABLET (FP) PO SCH (10:12)
[2020-11-07] MEDS: LOSARTAN POTASSIUM 25 MG TABLET PO SCH (10:38)
[2020-11-07] MEDS: BUDESONIDE/FORMETEROL FUMARATE 160/4.5 mcg INHALER IH SCH ×2 (11:57→21:03)
[2020-11-07] MEDS: DEXTROSE 5%-NORMAL SALINE 1,000 ML IV SCH ×2 (12:04→17:08)
[2020-11-07] MEDS: ATORVASTATIN CA 40 MG TABLET (FP) PO SCH (21:03)
[2020-11-07] MEDS: MONTELUKAST NA 10 MG TABLET PO SCH (21:03)
[2020-11-08] MEDS: DEXTROSE 5%-NORMAL SALINE 1,000 ML IV SCH (00:05)
[2020-11-08 08:42] LABS: BASO % 1.2 % (0-2.0); EOS % 3.4 % (0-4.5); HEMATOCRIT 27.9 % (35.4-49); HEMOGLOBIN 9.4 GM/dL (11.7-16.9); LYMPH % 32.5 % (8-40); MCH 33.1 pg (25.7-33.7); MCHC 33.6 g/dl (32.0-35.9); MEAN CELL VOLUME 98.6 fl (80-96); MEAN PLT VOLUME 9.1 fl (7.5-11.1); MONO % 9.3 % (3.8-10.2); NEUT % 53.6 % (42.8-82.8); PLATELET COUNT 214 10^3/uL (134-434); RBC 2.83 M/mm3 (4.00-5.60); RDW 13.9 % (11.9-15.9); WHITE BLOOD COUNT 5.3 K/mm3 (4.0-10.0)
[2020-11-08 09:07] LABS: CALCIUM 8.2 mg/dL (8.5-10.1); MAGNESIUM 1.5 mg/dL (1.8-2.4)
[2020-11-08 09:10] LABS: CREATININE 1.6 mg/dL (0.55-1.3); PHOSPHOROUS 2.3 mg/dL (2.5-4.9)
[2020-11-08 09:12] LABS: BILIRUBIN,TOTAL 0.6 mg/dL (0.2-1)
[2020-11-08 09:23] LABS: BLOOD UREA NITROGEN 43.9 mg/dL (7-18)
[2020-11-08] MEDS ORDERED: PT OWN MED DRAWER 7, Y5N ONE (09:29)
[2020-11-08] MEDS: amLODIPine BESYLATE 5 MG TABLET (FP) PO SCH (09:30)
[2020-11-08] MEDS: LOSARTAN POTASSIUM 25 MG TABLET PO SCH (09:30)
[2020-11-08] MEDS: ENOXAPARIN NA (PORCINE) 30 MG/0.3 ML DISP.SYRIN SQ SCH (09:31)
[2020-11-08] MEDS: TAMSULOSIN HCL 0.4 MG CAP PO SCH (09:31)
[2020-11-08] MEDS: SODIUM BICARBONATE 650 MG TABLET PO SCH (09:31)
[2020-11-08] MEDS: BUDESONIDE/FORMETEROL FUMARATE 160/4.5 mcg INHALER IH SCH ×2 (09:32→21:00)
[2020-11-08] MEDS: ATORVASTATIN CA 40 MG TABLET (FP) PO SCH (21:00)
[2020-11-08] MEDS: MONTELUKAST NA 10 MG TABLET PO SCH (21:00)
[2020-11-09 09:31] LABS: BASO % 1.5 % (0-2.0); EOS % 3.4 % (0-4.5); HEMATOCRIT 26.1 % (35.4-49); HEMOGLOBIN 8.9 GM/dL (11.7-16.9); LYMPH % 43.5 % (8-40); MCHC 34.1 g/dl (32.0-35.9); MEAN PLT VOLUME 8.5 fl (7.5-11.1); MONO % 9.1 % (3.8-10.2); NEUT % 42.5 % (42.8-82.8); PLATELET COUNT 190 10^3/uL (134-434); RBC 2.69 M/mm3 (4.00-5.60); RDW 13.7 % (11.9-15.9); WHITE BLOOD COUNT 5.1 K/mm3 (4.0-10.0)
[2020-11-09] MEDS: amLODIPine BESYLATE 5 MG TABLET (FP) PO SCH (09:46)
[2020-11-09] MEDS: TAMSULOSIN HCL 0.4 MG CAP PO SCH (09:46)
[2020-11-09] MEDS: LOSARTAN POTASSIUM 25 MG TABLET PO SCH (09:46)
[2020-11-09] MEDS: ENOXAPARIN NA (PORCINE) 30 MG/0.3 ML DISP.SYRIN SQ SCH (09:46)
[2020-11-09] MEDS: SODIUM BICARBONATE 650 MG TABLET PO SCH (09:46)
[2020-11-09] MEDS: BUDESONIDE/FORMETEROL FUMARATE 160/4.5 mcg INHALER IH SCH ×2 (09:47→21:11)
[2020-11-09 10:16] LABS: ALBUMIN 2.8 g/dl (3.4-5.0); BLOOD UREA NITROGEN 27.3 mg/dL (7-18)
[2020-11-09 10:17] LABS: CALCIUM 8.1 mg/dL (8.5-10.1)
[2020-11-09 10:20] LABS: TOT PROT 5.5 g/dl (6.4-8.2)
[2020-11-09 10:23] LABS: CREATININE 1.5 mg/dL (0.55-1.3)
[2020-11-09 10:33] LABS: BILIRUBIN,TOTAL 0.4 mg/dL (0.2-1)
[2020-11-09] MEDS: MONTELUKAST NA 10 MG TABLET PO SCH (21:12)
[2020-11-09] MEDS: ATORVASTATIN CA 40 MG TABLET (FP) PO SCH (21:12)
[2020-11-10] MEDS: TAMSULOSIN HCL 0.4 MG CAP PO SCH (08:01)
[2020-11-10 08:58] LABS: BASO % 1.9 % (0-2.0); EOS % 3.5 % (0-4.5); HEMATOCRIT 27.6 % (35.4-49); HEMOGLOBIN 9.4 GM/dL (11.7-16.9); LYMPH % 39.5 % (8-40); MCHC 34.1 g/dl (32.0-35.9); MEAN CELL VOLUME 96.8 fl (80-96); MEAN PLT VOLUME 8.9 fl (7.5-11.1); MONO % 8.3 % (3.8-10.2); NEUT % 46.8 % (42.8-82.8); PLATELET COUNT 208 10^3/uL (134-434); RBC 2.85 M/mm3 (4.00-5.60); RDW 13.6 % (11.9-15.9); WHITE BLOOD COUNT 5.1 K/mm3 (4.0-10.0)
[2020-11-10] MEDS: SODIUM BICARBONATE 650 MG TABLET PO SCH (09:08)
[2020-11-10] MEDS: BUDESONIDE/FORMETEROL FUMARATE 160/4.5 mcg INHALER IH SCH ×2 (09:09→21:31)
[2020-11-10] MEDS: LOSARTAN POTASSIUM 25 MG TABLET PO SCH (09:09)
[2020-11-10] MEDS: ENOXAPARIN NA (PORCINE) 30 MG/0.3 ML DISP.SYRIN SQ SCH (09:09)
[2020-11-10 09:16] LABS: ALBUMIN 3.2 g/dl (3.4-5.0); CALCIUM 8.1 mg/dL (8.5-10.1)
[2020-11-10 09:17] LABS: BLOOD UREA NITROGEN 24.5 mg/dL (7-18)
[2020-11-10 09:19] LABS: CREATININE 1.4 mg/dL (0.55-1.3)
[2020-11-10 09:20] LABS: BILIRUBIN,TOTAL 0.4 mg/dL (0.2-1)
[2020-11-10] MEDS: MONTELUKAST NA 10 MG TABLET PO SCH (21:32)
[2020-11-10] MEDS: ATORVASTATIN CA 40 MG TABLET (FP) PO SCH (21:32)
[2020-11-10] MEDS: ACETAMINOPHEN 325 MG TABLET (FP) PO PRN (22:43)
[2020-11-11] MEDS: TAMSULOSIN HCL 0.4 MG CAP PO SCH (08:51)
[2020-11-11 09:17] LABS: ALBUMIN 2.8 g/dl (3.4-5.0); CALCIUM 8.1 mg/dL (8.5-10.1)
[2020-11-11 09:18] LABS: BLOOD UREA NITROGEN 23.1 mg/dL (7-18); MAGNESIUM 1.2 mg/dL (1.8-2.4)
[2020-11-11 09:21] LABS: CREATININE 1.4 mg/dL (0.55-1.3)
[2020-11-11 09:22] LABS: BILIRUBIN,TOTAL 0.4 mg/dL (0.2-1); TOT PROT 5.4 g/dl (6.4-8.2)
[2020-11-11] MEDS: ENOXAPARIN NA (PORCINE) 30 MG/0.3 ML DISP.SYRIN SQ SCH (10:16)
[2020-11-11] MEDS: SODIUM BICARBONATE 650 MG TABLET PO SCH (10:16)
[2020-11-11] MEDS: LOSARTAN POTASSIUM 25 MG TABLET PO SCH (10:16)
[2020-11-11] MEDS: BUDESONIDE/FORMETEROL FUMARATE 160/4.5 mcg INHALER IH SCH ×2 (10:16→21:24)
[2020-11-11 16:26] VITALS: BMI 17.4
[2020-11-11] MEDS ORDERED: MAGNESIUM SULF 50% (8.12 MEQ/2 ML-1 GM VIAL) IVPB ONE (18:21)
[2020-11-11] MEDS ORDERED: MAGNESIUM OXIDE 400 MG TABLET (FP) PO ONE (18:21)
[2020-11-11] MEDS: ALPRAZolam 0.25 MG TABLET PO PRN (21:24)
[2020-11-11] MEDS: MONTELUKAST NA 10 MG TABLET PO SCH (21:24)
[2020-11-11] MEDS: ATORVASTATIN CA 40 MG TABLET (FP) PO SCH (21:24)
[2020-11-12] MEDS: ENOXAPARIN NA (PORCINE) 30 MG/0.3 ML DISP.SYRIN SQ SCH (09:28)
[2020-11-12] MEDS: LOSARTAN POTASSIUM 25 MG TABLET PO SCH (09:28)
[2020-11-12] MEDS: SODIUM BICARBONATE 650 MG TABLET PO SCH (09:28)
[2020-11-12] MEDS: TAMSULOSIN HCL 0.4 MG CAP PO SCH (09:28)
[2020-11-12] MEDS: ALPRAZolam 0.25 MG TABLET PO PRN ×2 (09:29→21:15)
[2020-11-12] MEDS: BUDESONIDE/FORMETEROL FUMARATE 160/4.5 mcg INHALER IH SCH ×2 (09:31→21:15)
[2020-11-12] MEDS: MAGNESIUM OXIDE 400 MG TABLET (FP) PO SCH ×2 (15:49→21:14)
[2020-11-12] MEDS: ATORVASTATIN CA 40 MG TABLET (FP) PO SCH (21:14)
[2020-11-12] MEDS: MONTELUKAST NA 10 MG TABLET PO SCH (21:14)
[2020-11-13 09:25] LABS: CALCIUM 8.5 mg/dL (8.5-10.1)
[2020-11-13 09:26] LABS: BLOOD UREA NITROGEN 26.1 mg/dL (7-18); MAGNESIUM 1.3 mg/dL (1.8-2.4)
[2020-11-13 09:29] LABS: CREATININE 1.6 mg/dL (0.55-1.3)
[2020-11-13] MEDS: MAGNESIUM OXIDE 400 MG TABLET (FP) PO SCH ×2 (09:51→21:06)
[2020-11-13] MEDS: BUDESONIDE/FORMETEROL FUMARATE 160/4.5 mcg INHALER IH SCH ×2 (09:51→21:06)
[2020-11-13] MEDS: LOSARTAN POTASSIUM 25 MG TABLET PO SCH (09:51)
[2020-11-13] MEDS: SODIUM BICARBONATE 650 MG TABLET PO SCH (09:51)
[2020-11-13] MEDS: TAMSULOSIN HCL 0.4 MG CAP PO SCH (09:51)
[2020-11-13] MEDS: ENOXAPARIN NA (PORCINE) 30 MG/0.3 ML DISP.SYRIN SQ SCH (09:51)
[2020-11-13] MEDS ORDERED: SODIUM ZIRCONIUM CYCLOSILICATE (LOKELMA) 5 GM PACKET PO ONE (12:53)
[2020-11-13] MEDS: ACETAMINOPHEN 325 MG TABLET (FP) PO PRN (21:05)
[2020-11-13] MEDS: MONTELUKAST NA 10 MG TABLET PO SCH (21:06)
[2020-11-13] MEDS: ATORVASTATIN CA 40 MG TABLET (FP) PO SCH (21:06)
[2020-11-14] MEDS: TAMSULOSIN HCL 0.4 MG CAP PO SCH (09:10)
[2020-11-14] MEDS: LOSARTAN POTASSIUM 25 MG TABLET PO SCH (09:10)
[2020-11-14] MEDS: MAGNESIUM OXIDE 400 MG TABLET (FP) PO SCH (09:10)
[2020-11-14] MEDS: SODIUM BICARBONATE 650 MG TABLET PO SCH (09:10)
[2020-11-14] MEDS: BUDESONIDE/FORMETEROL FUMARATE 160/4.5 mcg INHALER IH SCH (09:11)
[2020-11-14 10:14] VITALS: BP 121/67; PULSE 73; TEMP 98.2
== END 2020-11-14 13:51 | disposition home or self-care (01) | DRG 683 ==
LOC: JER 10:46 → JERBED 14:13 → J8W 20:53
PROVIDERS: ADMIT Family Medicine Geriatric Medicine; ATTEND Internal Medicine
DX: N17.9 Acute kidney failure, unspecified (principal); E46 Unspecified protein-calorie malnutrition; Z68.1 Body mass index [BMI] 19.9 or less, adult; E87.2 Acidosis; K52.9 Noninfective gastroenteritis and colitis, unspecified; E86.0 Dehydration; F03.90 Unspecified dementia, unspecified severity, without behavioral disturbance, psychotic disturbance, mood disturbance, and anxiety; J45.909 Unspecified asthma, uncomplicated; I25.10 Atherosclerotic heart disease of native coronary artery without angina pectoris; E78.5 Hyperlipidemia, unspecified; I13.10 Hypertensive heart and chronic kidney disease without heart failure, with stage 1 through stage 4 chronic kidney disease, or unspecified chronic kidney disease; R62.7 Adult failure to thrive; E83.42 Hypomagnesemia; K21.9 Gastro-esophageal reflux disease without esophagitis; N40.0 Benign prostatic hyperplasia without lower urinary tract symptoms; E87.5 Hyperkalemia
CPT/HCPCS: 36415; 70450-TC; 70551-TC; 71045-TC-FY; 74176-TC; 80048; 80053; 81003; 82607; 82728; 82962; 83540; 83550; 83735; 83880; 84100; 84443; 84484; 85025; 85610; 85730; 86780; 87086; 93005; 93010; 94640; 95860-TC; 97116-GP; 97161-GP; 99285-25; C9803; U0003; U0005

== ENCOUNTER 2021-02-18 15:25 | Inpatient (IN) | payer OTHER, BC ==
[2021-02-18 15:54] VITALS: BMI 22.9
[2021-02-18] MEDS ORDERED: ACETAMINOPHEN 1000 MG/100 ML VIAL IVPB ONE (16:16)
[2021-02-18] MEDS ORDERED: ACETAMINOPHEN INJECTION 100 ML IVPB ONE (16:29)
[2021-02-18] MEDS ORDERED: LACTATED RINGERS SOLUTION 1000 ML INFUS.BAG IV ONE (17:05)
[2021-02-18 17:25] LABS: BASO % 1.1 % (0-2.0); EOS % 1.6 % (0-4.5); HEMATOCRIT 31.1 % (35.4-49); HEMOGLOBIN 10.5 GM/dL (11.7-16.9); LYMPH % 8.5 % (8-40); MCH 33.4 pg (25.7-33.7); MCHC 33.6 g/dl (32.0-35.9); MEAN CELL VOLUME 99.2 fl (80-96); MEAN PLT VOLUME 8.6 fl (7.5-11.1); MONO % 7.1 % (3.8-10.2); NEUT % 81.7 % (42.8-82.8); PLATELET COUNT 223 10^3/uL (134-434); RBC 3.14 M/mm3 (4.00-5.60); RDW 14.4 % (11.9-15.9); WHITE BLOOD COUNT 5.6 K/mm3 (4.0-10.0)
[2021-02-18 17:32] LABS: INR 1.03 (0.83-1.09); PROTHROMBIN TIME (PATIENT) 12.1 SEC (9.7-13.0)
[2021-02-18 17:33] LABS: URINE APPEARANCE CLEAR; URINE BILIRUBIN NEGATIVE (NEGATIVE); URINE COLOR YELLOW; URINE GLUCOSE (UA) NEGATIVE (NEGATIVE); URINE KETONE NEGATIVE (NEGATIVE); URINE LEUK ESTERASE NEGATIVE (NEGATIVE); URINE NITRITE NEGATIVE (NEGATIVE); URINE PROTEIN NEGATIVE (NEGATIVE); URINE UROBILINOGEN 0.2 mg/dL (0.2-1.0)
[2021-02-18 17:35] LABS: ACTIVATED PTT 28.3 SECONDS (25.2-36.5)
[2021-02-18 17:48] LABS: CHLORIDE 106 mmol/L (98-107); SODIUM 131 mmol/L (136-145)
[2021-02-18 17:49] LABS: CALCIUM 8.4 mg/dL (8.5-10.1)
[2021-02-18 17:50] LABS: ALBUMIN 3.2 g/dl (3.4-5.0); BLOOD UREA NITROGEN 81.9 mg/dL (7-18); CO2 14 mmol/L (21-32); GLUCOSE,RANDOM 94 mg/dL (74-106)
[2021-02-18 17:53] LABS: CREATININE 3.3 mg/dL (0.55-1.3); SGOT/AST 223 U/L (15-37); SGPT/ALT 239 U/L (13-61)
[2021-02-18 17:54] LABS: BILIRUBIN,TOTAL 0.3 mg/dL (0.2-1); TOT PROT 6.4 g/dl (6.4-8.2)
[2021-02-18 17:55] LABS: ALK PHOS 139 U/L (45-117)
[2021-02-18 18:01] LABS: ANION GAP 11 MMOL/L (8-16)
[2021-02-18] MEDS ORDERED: INSULIN REGULAR HUMAN 100 UNITS/ML *VIAL IVPUSH ONE (18:21)
[2021-02-18] MEDS ORDERED: CALCIUM GLUC IN NACL, ISO-OSM 1 GM/50 ML BAG IVPB ONE (18:21)
[2021-02-18] MEDS ORDERED: DEXTROSE 50%-WATER - 25 GM/50 ML VIAL IVPUSH ONE (18:23)
[2021-02-18] MEDS ORDERED: CALCIUM GLUCONATE 10% - 1,000 MG/10 ML VIAL IVPB ONE (18:24)
[2021-02-18] MEDS ORDERED: DEXTROSE 50%-WATER 25 GM/50 ML DISP.SYRIN ONE (18:25)
[2021-02-18] MEDS ORDERED: INSULIN REGULAR HUMAN 100 UNITS/ML *VIAL ONE (18:25)
[2021-02-18] MEDS ORDERED: SODIUM ZIRCONIUM CYCLOSILICATE (LOKELMA) 5 GM PACKET ONE (18:25)
[2021-02-18] MEDS ORDERED: CALCIUM GLUCONATE 10% - 1,000 MG/10 ML VIAL ONE (18:25)
[2021-02-18] MEDS ORDERED: SODIUM CHLORIDE 0.9% 500 ML INFUS.BAG IV ONE (18:51)
[2021-02-18] MEDS ORDERED: SODIUM CHLORIDE 1,000 ML IV ONE (19:04)
[2021-02-18] MEDS ORDERED: DEXTROSE 5%-0.45% SALINE 1,000 ML IV SCH (23:45)
[2021-02-19 05:14] LABS: CHLORIDE 108 mmol/L (98-107); SODIUM 133 mmol/L (136-145)
[2021-02-19 05:16] LABS: BLOOD UREA NITROGEN 80.6 mg/dL (7-18); CALCIUM 8.2 mg/dL (8.5-10.1); CO2 15 mmol/L (21-32); GLUCOSE,RANDOM 82 mg/dL (74-106)
[2021-02-19 05:20] LABS: CREATININE 3.6 mg/dL (0.55-1.3)
[2021-02-19 05:24] LABS: ANION GAP 10 MMOL/L (8-16)
[2021-02-19] MEDS ORDERED: SODIUM POLYSTYRENE SULFONATE 15 GM/60 ML BOTTLE PO ONE (05:59)
[2021-02-19 06:25] LABS: EOS % 1.7 % (0-4.5); HEMATOCRIT 30.1 % (35.4-49); HEMOGLOBIN 10.2 GM/dL (11.7-16.9); LYMPH % 4.3 % (8-40); MCH 34.3 pg (25.7-33.7); MCHC 34.1 g/dl (32.0-35.9); MEAN CELL VOLUME 100.7 fl (80-96); MEAN PLT VOLUME 8.6 fl (7.5-11.1); MONO % 7.1 % (3.8-10.2); NEUT % 85.9 % (42.8-82.8); PLATELET COUNT 211 10^3/uL (134-434); RBC 2.99 M/mm3 (4.00-5.60); RDW 14.6 % (11.9-15.9); WHITE BLOOD COUNT 5.8 K/mm3 (4.0-10.0)
[2021-02-19] MEDS ORDERED: SODIUM POLYSTYRENE SULFONATE 15 GM/60 ML BOTTLE ONE (06:26)
[2021-02-19 06:45] LABS: CHLORIDE 108 mmol/L (98-107); SODIUM 132 mmol/L (136-145)
[2021-02-19 06:46] LABS: CALCIUM 7.9 mg/dL (8.5-10.1)
[2021-02-19 06:47] LABS: ALBUMIN 3.1 g/dl (3.4-5.0); BLOOD UREA NITROGEN 79.4 mg/dL (7-18); CO2 14 mmol/L (21-32); GLUCOSE,RANDOM 161 mg/dL (74-106)
[2021-02-19 06:50] LABS: CREATININE 3.7 mg/dL (0.55-1.3); SGOT/AST 285 U/L (15-37); SGPT/ALT 307 U/L (13-61)
[2021-02-19 06:52] LABS: BILIRUBIN,TOTAL 0.3 mg/dL (0.2-1); TOT PROT 6.3 g/dl (6.4-8.2)
[2021-02-19 06:53] LABS: ALK PHOS 141 U/L (45-117)
[2021-02-19 07:22] LABS: ANION GAP 10 MMOL/L (8-16)
[2021-02-19] MEDS ORDERED: TAMSULOSIN HCL 0.4 MG CAP PO SCH (08:30)
[2021-02-19] MEDS ORDERED: TAMSULOSIN HCL 0.4 MG CAP ONE (09:26)
[2021-02-19] MEDS ORDERED: LOSARTAN POTASSIUM 25 MG TABLET PO SCH (10:00)
[2021-02-19] MEDS ORDERED: HEPARIN NA (PORCINE) 5,000 UNITS/ML 1ML VIAL SQ SCH (10:00)
[2021-02-19] MEDS ORDERED: HYDROCHLOROTHIAZIDE 25 MG TABLET (FP) PO SCH (10:00)
[2021-02-19] MEDS ORDERED: SODIUM BICARBONATE 650 MG TABLET PO SCH (10:00)
[2021-02-19] MEDS ORDERED: SODIUM ZIRCONIUM CYCLOSILICATE (LOKELMA) 5 GM PACKET PO SCH (10:00)
[2021-02-19] MEDS ORDERED: COLCHICINE 0.6 MG CAPSULE PO SCH (10:00)
[2021-02-19] MEDS ORDERED: amLODIPine BESYLATE 5 MG TABLET (FP) PO SCH (10:00)
[2021-02-19] MEDS ORDERED: HEPARIN NA (PORCINE) 5,000 UNITS/ML 1ML VIAL ONE (10:29)
[2021-02-19] MEDS ORDERED: HYDROCHLOROTHIAZIDE 25 MG TABLET (FP) ONE (10:29)
[2021-02-19] MEDS ORDERED: amLODIPine BESYLATE 5 MG TABLET (FP) ONE (10:29)
[2021-02-19] MEDS ORDERED: SODIUM CHLORIDE 1,000 ML IV STA (12:30)
[2021-02-19] MEDS ORDERED: SODIUM BICARBONATE 8.4% 50 MEQ/50 ML DISP.SYRIN IVPUSH ONE (12:31)
[2021-02-19] MEDS ORDERED: INSULIN REGULAR HUMAN 100 UNITS/ML *VIAL IVPUSH ONE (12:31)
[2021-02-19] MEDS ORDERED: CALCIUM GLUCONATE 10% - 1,000 MG/10 ML VIAL IVPB ONE (12:31)
[2021-02-19] MEDS ORDERED: ALBUTEROL SO4 0.083% IH SOL 2.5 MG/3 ML VIAL.NEB. NEB PRN (12:33)
[2021-02-19] MEDS ORDERED: DEXTROSE 50%-WATER 25 GM/50 ML DISP.SYRIN IVPUSH ONE (12:45)
[2021-02-19] MEDS ORDERED: SODIUM CHLORIDE 0.45% 1,000 ML with SODIUM BICARBONATE 8.4% - 75 MEQ IV SCH (13:00)
[2021-02-19] MEDS ORDERED: SODIUM ZIRCONIUM CYCLOSILICATE (LOKELMA) 5 GM PACKET ONE (13:15)
[2021-02-19] MEDS ORDERED: DEXTROSE 50%-WATER 25 GM/50 ML DISP.SYRIN ONE (13:16)
[2021-02-19] MEDS ORDERED: SODIUM BICARBONATE 8.4% - 50 ML ONE (13:16)
[2021-02-19] MEDS: SODIUM ZIRCONIUM CYCLOSILICATE (LOKELMA) 5 GM PACKET PO SCH ×2 (13:46→21:01)
[2021-02-19] MEDS: SODIUM CHLORIDE 0.45% 1,000 ML with SODIUM BICARBONATE 8.4% - 75 MEQ IV SCH (16:06)
[2021-02-19 18:47] LABS: CALCIUM 8.5 mg/dL (8.5-10.1)
[2021-02-19 18:48] LABS: BLOOD UREA NITROGEN 77.4 mg/dL (7-18)
[2021-02-19 18:51] LABS: CREATININE 3.5 mg/dL (0.55-1.3)
[2021-02-19] MEDS ORDERED: FLU VACC QS2021-22(6MOS UP)/PF 60 MCG/0.5 ML SYRINGE IM ONE (19:30)
[2021-02-19] MEDS: HEPARIN NA (PORCINE) 5,000 UNITS/ML 1ML VIAL SQ SCH (21:01)
[2021-02-19] MEDS ORDERED: ATORVASTATIN CA 40 MG TABLET (FP) PO SCH (22:00)
[2021-02-20] MEDS ORDERED: PT OWN MED DRAWER 7, Y5N ONE ×2 (09:52→11:34)
[2021-02-20] MEDS ORDERED: COLCHICINE 0.6 MG CAPSULE PO SCH (10:00)
[2021-02-20] MEDS: SODIUM ZIRCONIUM CYCLOSILICATE (LOKELMA) 5 GM PACKET PO SCH ×2 (10:00→21:22)
[2021-02-20] MEDS: HEPARIN NA (PORCINE) 5,000 UNITS/ML 1ML VIAL SQ SCH ×2 (10:00→21:21)
[2021-02-20] MEDS: HYDROCHLOROTHIAZIDE 25 MG TABLET (FP) PO SCH (10:00)
[2021-02-20] MEDS: amLODIPine BESYLATE 5 MG TABLET (FP) PO SCH (10:00)
[2021-02-20] MEDS: TAMSULOSIN HCL 0.4 MG CAP PO SCH (10:01)
[2021-02-20] MEDS: SODIUM BICARBONATE 325 MG TABLET PO SCH (13:18)
[2021-02-20 15:12] LABS: BLOOD UREA NITROGEN 61.8 mg/dL (7-18); CALCIUM 7.9 mg/dL (8.5-10.1)
[2021-02-20 15:15] LABS: CREATININE 2.6 mg/dL (0.55-1.3)
[2021-02-20] MEDS: SODIUM CHLORIDE 0.45% 1,000 ML with SODIUM BICARBONATE 8.4% - 75 MEQ IV SCH (15:20)
[2021-02-21 07:40] LABS: BASO % 0.5 % (0-2.0); EOS % 0.4 % (0-4.5); HEMATOCRIT 28.1 % (35.4-49); HEMOGLOBIN 9.7 GM/dL (11.7-16.9); LYMPH % 8.5 % (8-40); MCHC 34.6 g/dl (32.0-35.9); MEAN CELL VOLUME 98.2 fl (80-96); MEAN PLT VOLUME 8.5 fl (7.5-11.1); MONO % 9.7 % (3.8-10.2); NEUT % 80.9 % (42.8-82.8); PLATELET COUNT 207 10^3/uL (134-434); RBC 2.86 M/mm3 (4.00-5.60); RDW 14.4 % (11.9-15.9); WHITE BLOOD COUNT 11.3 K/mm3 (4.0-10.0)
[2021-02-21 07:44] LABS: CALCIUM 7.5 mg/dL (8.5-10.1)
[2021-02-21 07:45] LABS: BLOOD UREA NITROGEN 52.5 mg/dL (7-18)
[2021-02-21 07:48] LABS: CREATININE 2.3 mg/dL (0.55-1.3)
[2021-02-21 07:50] LABS: BILIRUBIN,TOTAL 0.7 mg/dL (0.2-1); TOT PROT 5.4 g/dl (6.4-8.2)
[2021-02-21 07:54] LABS: ALBUMIN 2.3 g/dl (3.4-5.0)
[2021-02-21] MEDS ORDERED: PT OWN MED DRAWER 7, Y5N ONE (09:17)
[2021-02-21] MEDS: HYDROCHLOROTHIAZIDE 25 MG TABLET (FP) PO SCH (09:43)
[2021-02-21] MEDS: amLODIPine BESYLATE 5 MG TABLET (FP) PO SCH (09:44)
[2021-02-21] MEDS: SODIUM BICARBONATE 325 MG TABLET PO SCH (09:44)
[2021-02-21] MEDS: TAMSULOSIN HCL 0.4 MG CAP PO SCH (09:44)
[2021-02-21] MEDS: SODIUM ZIRCONIUM CYCLOSILICATE (LOKELMA) 5 GM PACKET PO SCH ×2 (09:44→21:23)
[2021-02-21] MEDS: HEPARIN NA (PORCINE) 5,000 UNITS/ML 1ML VIAL SQ SCH ×2 (09:44→21:22)
[2021-02-21] MEDS: SODIUM BICARBONATE 8.4% - 75 MEQ in SODIUM CHLORIDE 0.45% 1,000 ML IV SCH ×2 (13:33→21:23)
[2021-02-21] MEDS ORDERED: SODIUM CHLORIDE 250 ML IV STA (14:20)
[2021-02-21 16:25] LABS: HEMATOCRIT 28.3 % (35.4-49); HEMOGLOBIN 9.5 GM/dL (11.7-16.9); MCHC 33.4 g/dl (32.0-35.9); MEAN CELL VOLUME 98.6 fl (80-96); PLATELET COUNT 193 10^3/uL (134-434); RBC 2.87 M/mm3 (4.00-5.60); RDW 14.2 % (11.9-15.9); WHITE BLOOD COUNT 11.5 K/mm3 (4.0-10.0)
[2021-02-21 17:34] LABS: ANISOCYTOSIS 1+; MACROCYTOSIS 0; OVALOCYTE 1+; PLATELET ESTIMATE NORMAL; TEAR DROP CELLS 1+; TOXIC GRANULATION 1+
[2021-02-21] MEDS: ACETAMINOPHEN 325 MG TABLET (FP) PO PRN (20:33)
[2021-02-22] MEDS ORDERED: PT OWN MED DRAWER 7, Y5N ONE ×2 (06:41→09:45)
[2021-02-22 07:22] LABS: BASO % 0.6 % (0-2.0); EOS % 1.7 % (0-4.5); HEMATOCRIT 29.5 % (35.4-49); HEMOGLOBIN 10.2 GM/dL (11.7-16.9); LYMPH % 14.3 % (8-40); MCH 33.9 pg (25.7-33.7); MCHC 34.5 g/dl (32.0-35.9); MEAN CELL VOLUME 98.3 fl (80-96); MEAN PLT VOLUME 8.6 fl (7.5-11.1); MONO % 7.3 % (3.8-10.2); NEUT % 76.1 % (42.8-82.8); PLATELET COUNT 220 10^3/uL (134-434); RDW 14.3 % (11.9-15.9); WHITE BLOOD COUNT 9.2 K/mm3 (4.0-10.0)
[2021-02-22 07:48] LABS: ALBUMIN 2.2 g/dl (3.4-5.0); CALCIUM 7.7 mg/dL (8.5-10.1)
[2021-02-22 07:51] LABS: CREATININE 1.9 mg/dL (0.55-1.3)
[2021-02-22 07:52] LABS: BILIRUBIN,TOTAL 0.6 mg/dL (0.2-1)
[2021-02-22 07:53] LABS: TOT PROT 5.2 g/dl (6.4-8.2)
[2021-02-22] MEDS ORDERED: POTASSIUM CHLORIDE TABS 20 MEQ TABLET.ER (FP) PO ONE (09:11)
[2021-02-22] MEDS: TAMSULOSIN HCL 0.4 MG CAP PO SCH (09:29)
[2021-02-22] MEDS: ACETAMINOPHEN 325 MG TABLET (FP) PO PRN ×2 (09:31→20:36)
[2021-02-22] MEDS: HYDROCHLOROTHIAZIDE 25 MG TABLET (FP) PO SCH (09:43)
[2021-02-22] MEDS: amLODIPine BESYLATE 5 MG TABLET (FP) PO SCH (09:43)
[2021-02-22] MEDS: HEPARIN NA (PORCINE) 5,000 UNITS/ML 1ML VIAL SQ SCH ×2 (09:43→21:36)
[2021-02-22] MEDS: KCL 10 MEQ IVPB 10 MEQ/100 ML INFUS.BAG IVPB SCH ×2 (12:24→16:24)
[2021-02-22] MEDS: SODIUM BICARBONATE 325 MG TABLET PO SCH (18:21)
[2021-02-23 06:38] LABS: BASO % 0.9 % (0-2.0); EOS % 1.2 % (0-4.5); HEMATOCRIT 26.7 % (35.4-49); HEMOGLOBIN 9.1 GM/dL (11.7-16.9); MCH 33.6 pg (25.7-33.7); MCHC 34.1 g/dl (32.0-35.9); MEAN CELL VOLUME 98.4 fl (80-96); MEAN PLT VOLUME 8.2 fl (7.5-11.1); MONO % 8.5 % (3.8-10.2); NEUT % 71.4 % (42.8-82.8); PLATELET COUNT 251 10^3/uL (134-434); RBC 2.72 M/mm3 (4.00-5.60); RDW 14.1 % (11.9-15.9)
[2021-02-23 07:46] LABS: ALBUMIN 2.1 g/dl (3.4-5.0); BILIRUBIN,TOTAL 0.3 mg/dL (0.2-1); BLOOD UREA NITROGEN 38.8 mg/dL (7-18); CALCIUM 7.8 mg/dL (8.5-10.1); CREATININE 1.9 mg/dL (0.55-1.3)
[2021-02-23] MEDS ORDERED: TAMSULOSIN HCL 0.4 MG CAP PO SCH (08:50)
[2021-02-23] MEDS ORDERED: POTASSIUM CHLORIDE TABS 20 MEQ TABLET.ER (FP) PO ONE (08:51)
[2021-02-23] MEDS: ACETAMINOPHEN 325 MG TABLET (FP) PO PRN (10:10)
[2021-02-23] MEDS: SODIUM BICARBONATE 325 MG TABLET PO SCH (10:11)
[2021-02-23] MEDS: HEPARIN NA (PORCINE) 5,000 UNITS/ML 1ML VIAL SQ SCH ×2 (10:11→21:11)
[2021-02-23] MEDS: amLODIPine BESYLATE 5 MG TABLET (FP) PO SCH (10:15)
[2021-02-23] MEDS: TAMSULOSIN HCL 0.4 MG CAP PO SCH ×2 (10:35→10:36)
[2021-02-24 07:49] LABS: BASO % 0.6 % (0-2.0); EOS % 1.3 % (0-4.5); HEMATOCRIT 26.6 % (35.4-49); HEMOGLOBIN 9.1 GM/dL (11.7-16.9); LYMPH % 21.5 % (8-40); MCH 33.5 pg (25.7-33.7); MCHC 34.4 g/dl (32.0-35.9); MEAN CELL VOLUME 97.5 fl (80-96); MEAN PLT VOLUME 7.9 fl (7.5-11.1); MONO % 8.8 % (3.8-10.2); NEUT % 67.8 % (42.8-82.8); PLATELET COUNT 262 10^3/uL (134-434); RBC 2.73 M/mm3 (4.00-5.60); RDW 14.7 % (11.9-15.9); WHITE BLOOD COUNT 7.4 K/mm3 (4.0-10.0)
[2021-02-24] MEDS: HEPARIN NA (PORCINE) 5,000 UNITS/ML 1ML VIAL SQ SCH ×2 (09:06→22:02)
[2021-02-24] MEDS: amLODIPine BESYLATE 5 MG TABLET (FP) PO SCH (09:06)
[2021-02-24] MEDS: TAMSULOSIN HCL 0.4 MG CAP PO SCH (09:06)
[2021-02-24] MEDS: SODIUM BICARBONATE 325 MG TABLET PO SCH (09:07)
[2021-02-24 09:49] LABS: ALBUMIN 2.3 g/dl (3.4-5.0); BILIRUBIN,TOTAL 0.3 mg/dL (0.2-1); BLOOD UREA NITROGEN 37.9 mg/dL (7-18); TOT PROT 5.4 g/dl (6.4-8.2)
[2021-02-24] MEDS: ACETAMINOPHEN 325 MG TABLET (FP) PO PRN ×2 (11:52→20:31)
[2021-02-25] MEDS: HEPARIN NA (PORCINE) 5,000 UNITS/ML 1ML VIAL SQ SCH ×3 (09:19→21:18)
[2021-02-25] MEDS: TAMSULOSIN HCL 0.4 MG CAP PO SCH (09:19)
[2021-02-25] MEDS: amLODIPine BESYLATE 5 MG TABLET (FP) PO SCH ×2 (09:19)
[2021-02-25] MEDS: SODIUM BICARBONATE 325 MG TABLET PO SCH (09:20)
[2021-02-25] MEDS: ACETAMINOPHEN 325 MG TABLET (FP) PO PRN (16:26)
[2021-02-26 07:07] LABS: BASO % 0.7 % (0-2.0); EOS % 1.6 % (0-4.5); HEMATOCRIT 24.9 % (35.4-49); HEMOGLOBIN 8.4 GM/dL (11.7-16.9); LYMPH % 16.8 % (8-40); MCHC 33.6 g/dl (32.0-35.9); MEAN CELL VOLUME 98.3 fl (80-96); NEUT % 71.9 % (42.8-82.8); PLATELET COUNT 292 10^3/uL (134-434); RBC 2.54 M/mm3 (4.00-5.60); RDW 14.2 % (11.9-15.9); WHITE BLOOD COUNT 8.7 K/mm3 (4.0-10.0)
[2021-02-26 09:20] LABS: ALBUMIN 2.2 g/dl (3.4-5.0); BILIRUBIN,TOTAL 0.3 mg/dL (0.2-1); BLOOD UREA NITROGEN 39.1 mg/dL (7-18); CALCIUM 8.1 mg/dL (8.5-10.1); CREATININE 1.9 mg/dL (0.55-1.3); TOT PROT 5.3 g/dl (6.4-8.2)
[2021-02-26] MEDS: HEPARIN NA (PORCINE) 5,000 UNITS/ML 1ML VIAL SQ SCH (11:03)
[2021-02-26] MEDS: amLODIPine BESYLATE 5 MG TABLET (FP) PO SCH (11:04)
[2021-02-26] MEDS: TAMSULOSIN HCL 0.4 MG CAP PO SCH (11:04)
[2021-02-27] MEDS: ACETAMINOPHEN 325 MG TABLET (FP) PO PRN ×3 (01:39→18:20)
[2021-02-27] MEDS: TAMSULOSIN HCL 0.4 MG CAP PO SCH (09:44)
[2021-02-27] MEDS: amLODIPine BESYLATE 5 MG TABLET (FP) PO SCH (09:44)
[2021-02-27] MEDS ORDERED: LIDOCAINE HCL 2% JELLY 10 ML CARTRIDGE UR ONE (14:58)
[2021-02-27] MEDS ORDERED: ACETAMINOPHEN 325 MG TABLET (FP) PO PRN (20:09)
[2021-02-28 07:07] LABS: BASO % 0.7 % (0-2.0); EOS % 1.7 % (0-4.5); HEMATOCRIT 24.3 % (35.4-49); HEMOGLOBIN 8.3 GM/dL (11.7-16.9); MCH 33.8 pg (25.7-33.7); MCHC 34.2 g/dl (32.0-35.9); MEAN CELL VOLUME 98.9 fl (80-96); MEAN PLT VOLUME 8.3 fl (7.5-11.1); NEUT % 68.6 % (42.8-82.8); PLATELET COUNT 347 10^3/uL (134-434); RBC 2.45 M/mm3 (4.00-5.60); RDW 14.5 % (11.9-15.9); WHITE BLOOD COUNT 9.4 K/mm3 (4.0-10.0)
[2021-02-28 07:33] LABS: BLOOD UREA NITROGEN 53.4 mg/dL (7-18); CALCIUM 8.1 mg/dL (8.5-10.1)
[2021-02-28 07:34] LABS: ALBUMIN 2.1 g/dl (3.4-5.0)
[2021-02-28 07:37] LABS: CREATININE 2.2 mg/dL (0.55-1.3)
[2021-02-28 07:38] LABS: BILIRUBIN,TOTAL 0.3 mg/dL (0.2-1); TOT PROT 5.6 g/dl (6.4-8.2)
[2021-02-28] MEDS ORDERED: amLODIPine BESYLATE 5 MG TABLET (FP) PO SCH (10:00)
[2021-03-01] MEDS: ACETAMINOPHEN 325 MG TABLET (FP) PO PRN ×2 (00:41→11:50)
[2021-03-01 07:42] LABS: BASO % 0.8 % (0-2.0); EOS % 1.7 % (0-4.5); HEMATOCRIT 24.7 % (35.4-49); HEMOGLOBIN 8.3 GM/dL (11.7-16.9); MCH 33.3 pg (25.7-33.7); MCHC 33.6 g/dl (32.0-35.9); MEAN CELL VOLUME 99.3 fl (80-96); MONO % 8.5 % (3.8-10.2); PLATELET COUNT 359 10^3/uL (134-434); RBC 2.48 M/mm3 (4.00-5.60); RDW 14.5 % (11.9-15.9); WHITE BLOOD COUNT 8.7 K/mm3 (4.0-10.0)
[2021-03-01 08:41] LABS: CALCIUM 8.1 mg/dL (8.5-10.1)
[2021-03-01 08:42] LABS: ALBUMIN 2.2 g/dl (3.4-5.0); BLOOD UREA NITROGEN 55.9 mg/dL (7-18)
[2021-03-01 08:45] LABS: CREATININE 1.8 mg/dL (0.55-1.3)
[2021-03-01 08:47] LABS: BILIRUBIN,TOTAL 0.3 mg/dL (0.2-1); TOT PROT 5.5 g/dl (6.4-8.2)
[2021-03-01] MEDS: amLODIPine BESYLATE 5 MG TABLET (FP) PO SCH ×2 (10:43→11:00)
[2021-03-02] MEDS: ACETAMINOPHEN 325 MG TABLET (FP) PO PRN ×2 (05:31→10:30)
[2021-03-02] MEDS: amLODIPine BESYLATE 5 MG TABLET (FP) PO SCH (11:49)
[2021-03-03] MEDS ORDERED: ACETAMINOPHEN 1000 MG/100 ML VIAL IVPB ONE (07:15)
[2021-03-03 08:25] LABS: BASO % 1.2 % (0-2.0); EOS % 1.4 % (0-4.5); HEMATOCRIT 26.1 % (35.4-49); HEMOGLOBIN 8.9 GM/dL (11.7-16.9); LYMPH % 21.5 % (8-40); MCH 33.6 pg (25.7-33.7); MCHC 33.9 g/dl (32.0-35.9); MEAN PLT VOLUME 7.8 fl (7.5-11.1); MONO % 7.1 % (3.8-10.2); NEUT % 68.8 % (42.8-82.8); PLATELET COUNT 405 10^3/uL (134-434); RBC 2.64 M/mm3 (4.00-5.60); RDW 14.1 % (11.9-15.9); WHITE BLOOD COUNT 8.6 K/mm3 (4.0-10.0)
[2021-03-03 09:01] LABS: ALBUMIN 2.3 g/dl (3.4-5.0); BLOOD UREA NITROGEN 51.2 mg/dL (7-18); CALCIUM 8.6 mg/dL (8.5-10.1)
[2021-03-03 09:02] LABS: CREATININE 1.8 mg/dL (0.55-1.3)
[2021-03-03 09:03] LABS: BILIRUBIN,TOTAL 0.3 mg/dL (0.2-1)
[2021-03-03] MEDS: amLODIPine BESYLATE 5 MG TABLET (FP) PO SCH (10:04)
[2021-03-03] MEDS: ACETAMINOPHEN 325 MG TABLET (FP) PO PRN ×2 (10:11→17:10)
[2021-03-03] MEDS ORDERED: HYDROmorphone HCl 2 MG/ML VIAL IM ONE (13:34)
[2021-03-03] MEDS ORDERED: PROPOFOL 20 ML ONE ×2 (13:37)
[2021-03-03] MEDS ORDERED: DEXTROSE 5%-0.45% SALINE 1,000 ML IV SCH (13:45)
[2021-03-03] MEDS ORDERED: MIDAZOLAM HCL 2 MG/2 ML SINGLE DOSE VIAL ONE (13:52)
[2021-03-03] MEDS ORDERED: ACETAMINOPHEN 325 MG TABLET (FP) PO PRN (14:00)
[2021-03-03] MEDS ORDERED: ceFAZolin SODIUM 1 GM VIAL IVPB ONE (14:03)
[2021-03-03] MEDS ORDERED: ceFAZolin SODIUM 1 GM VIAL ONE (14:04)
[2021-03-03] MEDS ORDERED: HYDROmorphone HCL CARPU-JECT 2 MG/1 ML DISP.SYRIN IM ONE (15:07)
[2021-03-03] MEDS: DEXTROSE 5%-0.45% SALINE 1,000 ML IV SCH (15:40)
[2021-03-03] MEDS ORDERED: LACTATED RINGERS SOLUTION 1,000 ML IV SCH (16:45)
[2021-03-03] MEDS: CEPHALEXIN MONOHYDRATE 500 MG CAPSULE (UD) PO SCH ×2 (17:11→22:38)
[2021-03-03] MEDS ORDERED: QUEtiapine FUMARATE 25 MG TABLET PO ONE (19:16)
[2021-03-03] MEDS ORDERED: LORazepam 2 MG/ML SDV VIAL IM ONE (22:00)
[2021-03-03] MEDS: DOCUSATE SODIUM 100 MG CAPSULE (FP) PO SCH (22:38)
[2021-03-04] MEDS: ACETAMINOPHEN 325 MG TABLET (FP) PO PRN ×2 (06:11→22:38)
[2021-03-04] MEDS: CEPHALEXIN MONOHYDRATE 500 MG CAPSULE (UD) PO SCH ×3 (06:16→22:38)
[2021-03-04] MEDS ORDERED: CEPHALEXIN MONOHYDRATE 500 MG CAPSULE (UD) PO SCH (07:00)
[2021-03-04 08:50] LABS: EOS % 0.9 % (0-4.5); HEMATOCRIT 23.2 % (35.4-49); HEMOGLOBIN 7.8 GM/dL (11.7-16.9); LYMPH % 17.2 % (8-40); MCH 33.6 pg (25.7-33.7); MCHC 33.8 g/dl (32.0-35.9); MEAN CELL VOLUME 99.5 fl (80-96); MEAN PLT VOLUME 7.9 fl (7.5-11.1); MONO % 9.4 % (3.8-10.2); NEUT % 71.5 % (42.8-82.8); PLATELET COUNT 363 10^3/uL (134-434); RBC 2.33 M/mm3 (4.00-5.60); RDW 13.9 % (11.9-15.9); WHITE BLOOD COUNT 9.2 K/mm3 (4.0-10.0)
[2021-03-04 09:30] LABS: CREATININE 1.8 mg/dL (0.55-1.3)
[2021-03-04 09:31] LABS: CALCIUM 8.1 mg/dL (8.5-10.1); TOT PROT 5.2 g/dl (6.4-8.2)
[2021-03-04 09:32] LABS: BILIRUBIN,TOTAL 0.3 mg/dL (0.2-1); BLOOD UREA NITROGEN 45.8 mg/dL (7-18)
[2021-03-04] MEDS: amLODIPine BESYLATE 5 MG TABLET (FP) PO SCH (09:35)
[2021-03-04] MEDS: DEXTROSE 5%-0.45% SALINE 1,000 ML IV SCH ×2 (12:01→16:26)
[2021-03-04] MEDS: ALBUTEROL SO4 HFA INHALER IH PRN (16:25)
[2021-03-04] MEDS: DOCUSATE SODIUM 100 MG CAPSULE (FP) PO SCH (22:40)
[2021-03-05] MEDS: oxyCODONE HCL 5 MG TABLET PO PRN ×2 (04:13→18:14)
[2021-03-05] MEDS: CEPHALEXIN MONOHYDRATE 500 MG CAPSULE (UD) PO SCH ×3 (06:58→23:32)
[2021-03-05 08:57] LABS: EOS % 2.2 % (0-4.5); HEMATOCRIT 23.4 % (35.4-49); HEMOGLOBIN 7.9 GM/dL (11.7-16.9); LYMPH % 25.7 % (8-40); MCH 33.5 pg (25.7-33.7); MCHC 33.7 g/dl (32.0-35.9); MEAN CELL VOLUME 99.2 fl (80-96); MEAN PLT VOLUME 7.8 fl (7.5-11.1); MONO % 10.6 % (3.8-10.2); NEUT % 60.5 % (42.8-82.8); PLATELET COUNT 336 10^3/uL (134-434); RBC 2.36 M/mm3 (4.00-5.60); RDW 14.2 % (11.9-15.9); WHITE BLOOD COUNT 6.9 K/mm3 (4.0-10.0)
[2021-03-05] MEDS: amLODIPine BESYLATE 5 MG TABLET (FP) PO SCH (09:14)
[2021-03-05 09:23] LABS: BLOOD UREA NITROGEN 46.3 mg/dL (7-18); CALCIUM 7.8 mg/dL (8.5-10.1)
[2021-03-05 09:24] LABS: ALBUMIN 1.9 g/dl (3.4-5.0)
[2021-03-05 09:27] LABS: CREATININE 1.7 mg/dL (0.55-1.3)
[2021-03-05 09:28] LABS: BILIRUBIN,TOTAL 0.2 mg/dL (0.2-1); TOT PROT 5.2 g/dl (6.4-8.2)
[2021-03-05] MEDS: DEXTROSE 5%-0.45% SALINE 1,000 ML IV SCH ×3 (11:43→21:12)
[2021-03-05] MEDS: ALBUTEROL SO4 HFA INHALER IH PRN (18:28)
[2021-03-05] MEDS: DOCUSATE SODIUM 100 MG CAPSULE (FP) PO SCH (21:12)
[2021-03-06] MEDS: CEPHALEXIN MONOHYDRATE 500 MG CAPSULE (UD) PO SCH ×3 (06:32→22:23)
[2021-03-06] MEDS: DEXTROSE 5%-0.45% SALINE 1,000 ML IV SCH (06:36)
[2021-03-06 08:27] LABS: BASO % 0.9 % (0-2.0); EOS % 2.4 % (0-4.5); HEMATOCRIT 23.7 % (35.4-49); HEMOGLOBIN 7.9 GM/dL (11.7-16.9); LYMPH % 27.8 % (8-40); MCH 32.6 pg (25.7-33.7); MCHC 33.2 g/dl (32.0-35.9); MEAN CELL VOLUME 98.2 fl (80-96); MEAN PLT VOLUME 7.9 fl (7.5-11.1); NEUT % 60.9 % (42.8-82.8); PLATELET COUNT 355 10^3/uL (134-434); RBC 2.42 M/mm3 (4.00-5.60); WHITE BLOOD COUNT 6.3 K/mm3 (4.0-10.0)
[2021-03-06] MEDS: amLODIPine BESYLATE 5 MG TABLET (FP) PO SCH (08:59)
[2021-03-06 09:02] LABS: ALBUMIN 1.9 g/dl (3.4-5.0); BLOOD UREA NITROGEN 41.1 mg/dL (7-18); CALCIUM 7.8 mg/dL (8.5-10.1)
[2021-03-06 09:05] LABS: CREATININE 1.5 mg/dL (0.55-1.3)
[2021-03-06 09:07] LABS: BILIRUBIN,TOTAL 0.4 mg/dL (0.2-1); TOT PROT 5.2 g/dl (6.4-8.2)
[2021-03-06] MEDS: oxyCODONE HCL 5 MG TABLET PO PRN (14:25)
[2021-03-06] MEDS ORDERED: IRON SUCROSE INJECTION 100 MG in SODIUM CHLORIDE 95 ML IVPB ONE (16:05)
[2021-03-06] MEDS: TAMSULOSIN HCL 0.4 MG CAP PO SCH (17:04)
[2021-03-06] MEDS: DOCUSATE SODIUM 100 MG CAPSULE (FP) PO SCH (22:23)
[2021-03-07] MEDS: CEPHALEXIN MONOHYDRATE 500 MG CAPSULE (UD) PO SCH (06:51)
[2021-03-07 08:10] LABS: BASO % 1.8 % (0-2.0); EOS % 2.9 % (0-4.5); HEMATOCRIT 25.3 % (35.4-49); HEMOGLOBIN 8.4 GM/dL (11.7-16.9); LYMPH % 33.6 % (8-40); MCH 32.8 pg (25.7-33.7); MCHC 33.3 g/dl (32.0-35.9); MEAN CELL VOLUME 98.5 fl (80-96); MONO % 7.9 % (3.8-10.2); NEUT % 53.8 % (42.8-82.8); PLATELET COUNT 375 10^3/uL (134-434); RBC 2.57 M/mm3 (4.00-5.60); RDW 13.8 % (11.9-15.9); WHITE BLOOD COUNT 5.7 K/mm3 (4.0-10.0)
[2021-03-07 08:44] LABS: CALCIUM 8.2 mg/dL (8.5-10.1)
[2021-03-07 08:45] LABS: ALBUMIN 2.1 g/dl (3.4-5.0); BLOOD UREA NITROGEN 37.1 mg/dL (7-18)
[2021-03-07 08:48] LABS: CREATININE 1.5 mg/dL (0.55-1.3)
[2021-03-07 08:49] LABS: BILIRUBIN,TOTAL 0.2 mg/dL (0.2-1); TOT PROT 5.7 g/dl (6.4-8.2)
[2021-03-07] MEDS: TAMSULOSIN HCL 0.4 MG CAP PO SCH (09:26)
[2021-03-07] MEDS: amLODIPine BESYLATE 5 MG TABLET (FP) PO SCH (09:26)
[2021-03-07] MEDS: ACETAMINOPHEN 325 MG TABLET (FP) PO PRN ×2 (12:10→21:54)
[2021-03-07] MEDS: oxyCODONE HCL 5 MG TABLET PO PRN ×2 (14:38→20:32)
[2021-03-07] MEDS ORDERED: HALOPERIDOL 0.5 MG TABLET PO PRN (16:42)
[2021-03-07] MEDS: ALBUTEROL SO4 HFA INHALER IH PRN (20:15)
[2021-03-07] MEDS: DOCUSATE SODIUM 100 MG CAPSULE (FP) PO SCH (21:03)
[2021-03-08] MEDS: amLODIPine BESYLATE 5 MG TABLET (FP) PO SCH (09:04)
[2021-03-08] MEDS: TAMSULOSIN HCL 0.4 MG CAP PO SCH (09:05)
[2021-03-08 14:08] VITALS: BP 105/54; PULSE 69; TEMP 98.6
[2021-03-08] MEDS: oxyCODONE HCL 5 MG TABLET PO PRN (14:56)
== END 2021-03-08 20:07 | DRG 713 ==
LOC: JER 15:25 → JERBED 18:40 → J2W 02-19 15:46 → J7W 03-02 19:55 → JERBED 03-04 21:04 → J7W 03-04 21:07
PROVIDERS: ADMIT Internal Medicine; ATTEND Internal Medicine
PROC: 0TJB8ZZ Inspection of Bladder, Via Natural or Artificial Opening Endoscopic (ICD-10-PCS; 2021-03-03)
PROC: 0VB07ZZ Excision of Prostate, Via Natural or Artificial Opening (ICD-10-PCS; principal; 2021-03-03 13:30)
DX: N40.1 Benign prostatic hyperplasia with lower urinary tract symptoms (principal); G93.41 Metabolic encephalopathy; N17.9 Acute kidney failure, unspecified; E87.2 Acidosis; E87.1 Hypo-osmolality and hyponatremia; K56.7 Ileus, unspecified; N13.30 Unspecified hydronephrosis; R33.9 Retention of urine, unspecified; J44.9 Chronic obstructive pulmonary disease, unspecified; J45.909 Unspecified asthma, uncomplicated; I10 Essential (primary) hypertension; E78.5 Hyperlipidemia, unspecified; E87.5 Hyperkalemia; R19.7 Diarrhea, unspecified; R74.01 Elevation of levels of liver transaminase levels; N18.9 Chronic kidney disease, unspecified; I25.10 Atherosclerotic heart disease of native coronary artery without angina pectoris; I12.9 Hypertensive chronic kidney disease with stage 1 through stage 4 chronic kidney disease, or unspecified chronic kidney disease; R41.82 Altered mental status, unspecified; F32.A Depression, unspecified; M10.9 Gout, unspecified; N41.0 Acute prostatitis; N41.1 Chronic prostatitis
CPT/HCPCS: 36415; 70450-TC; 71045-TC-FY; 74021-TC-FY; 74176-TC; 80048; 80053; 80307; 81003; 82272; 82553; 82962; 83605; 84484; 84550; 85025; 85610; 85730; 86850; 86900; 86901; 87040; 87086; 87186; 88108; 88305-TC; 93005; 93010; 94010; 94640; 94760; 99285-25; C9803; J0131; J1644; J1756; U0003; U0005

== ENCOUNTER 2021-07-16 16:35 | Inpatient (IN) | payer OTHER, BC ==
[2021-07-16] MEDS ORDERED: ACETAMINOPHEN 1000 MG/100 ML BAG IVPB ONE (17:42)
[2021-07-16] MEDS ORDERED: LACTATED RINGERS SOLUTION 1000 ML INFUS.BAG IV ONE (17:42)
[2021-07-16] MEDS ORDERED: LOPERAMIDE HCL 1 MG/5 ML UNIT DOSE CUP PO ONE (17:43)
[2021-07-16] MEDS ORDERED: ACETAMINOPHEN INJECTION 100 ML IVPB ONE (17:56)
[2021-07-16 18:43] LABS: BASO % 0.4 % (0-2.0); EOS % 2.4 % (0-4.5); HEMATOCRIT 37.9 % (35.4-49); HEMOGLOBIN 12.4 GM/dL (11.7-16.9); LYMPH % 38.4 % (8-40); MCH 32.3 pg (25.7-33.7); MCHC 32.8 g/dl (32.0-35.9); MEAN CELL VOLUME 98.5 fl (80-96); MEAN PLT VOLUME 8.1 fl (7.5-11.1); MONO % 8.7 % (3.8-10.2); NEUT % 50.1 % (42.8-82.8); PLATELET COUNT 213 10^3/uL (134-434); RBC 3.84 M/mm3 (4.00-5.60); RDW 15.4 % (11.9-15.9); WHITE BLOOD COUNT 4.1 K/mm3 (4.0-10.0)
[2021-07-16 18:52] LABS: CHLORIDE 114 mmol/L (98-107); SODIUM 138 mmol/L (136-145)
[2021-07-16 18:54] LABS: GLUCOSE,RANDOM 82 mg/dL (74-106)
[2021-07-16 18:55] LABS: CO2 13 mmol/L (21-32); MAGNESIUM 1.5 mg/dL (1.8-2.4)
[2021-07-16 18:57] LABS: SGPT/ALT 88 U/L (13-61)
[2021-07-16 18:58] LABS: CREATININE 2.5 mg/dL (0.55-1.3); SGOT/AST 75 U/L (15-37)
[2021-07-16 18:59] LABS: BILIRUBIN,TOTAL 0.4 mg/dL (0.2-1); TOT PROT 7.7 g/dl (6.4-8.2)
[2021-07-16 19:00] LABS: ALK PHOS 149 U/L (45-117)
[2021-07-16 19:06] LABS: ANION GAP 11 MMOL/L (8-16)
[2021-07-16 20:44] LABS: BLOOD UREA NITROGEN 47.4 mg/dL (7-18)
[2021-07-16 20:48] LABS: CREATININE 1.8 mg/dL (0.55-1.3)
[2021-07-16] MEDS ORDERED: MAGNESIUM SULF 50% (8.12 MEQ/2 ML-1 GM VIAL) IVPB ONE (21:03)
[2021-07-16] MEDS ORDERED: MAGNESIUM SULFATE IN WATER 2 GM/50 ML IVPB IVPB ONE (21:27)
[2021-07-16 21:46] LABS: EPI CELLS 2 /uL (0-25.1); HYALINE CASTS 0 /uL (0-3.1); URINE APPEARANCE CLOUDY; URINE BACTERIA >9,000 /uL (0-1359); URINE BILIRUBIN NEGATIVE (NEGATIVE); URINE COLOR YELLOW; URINE GLUCOSE (UA) NEGATIVE (NEGATIVE); URINE KETONE TRACE (NEGATIVE); URINE LEUK ESTERASE 3+ (NEGATIVE); URINE NITRITE NEGATIVE (NEGATIVE); URINE PROTEIN 1+ (NEGATIVE); URINE RBC 16 /uL (0-23.9); URINE UROBILINOGEN 0.2 mg/dL (0.2-1.0); URINE WBC 1324 /uL (0-25.8)
[2021-07-16] MEDS ORDERED: CEFTRIAXONE 1 GM in DEXTROSE 5%-WATER - 100 ML IVPB ONE (21:51)
[2021-07-16] MEDS ORDERED: SODIUM CHLORIDE 0.9% 500 ML INFUS.BAG IV ONE (22:02)
[2021-07-16] MEDS ORDERED: CEFTRIAXONE 1 GM/50 ML BAG ONE (22:06)
[2021-07-16] MEDS ORDERED: HALOPERIDOL 0.5 MG TABLET PO PRN (23:15)
[2021-07-16] MEDS: DEXTROSE 5%-0.45% SALINE 1,000 ML IV SCH (23:46)
[2021-07-17] MEDS ORDERED: cefTRIAXone SODIUM 1 GM VIAL ONE (09:20)
[2021-07-17] MEDS ORDERED: DEXTROSE 5%-WATER - 50 ML IVPB ONE (09:21)
[2021-07-17] MEDS: CEFTRIAXONE 1 GM in DEXTROSE 5%-WATER - 50 ML IVPB SCH (09:22)
[2021-07-17] MEDS: TAMSULOSIN HCL 0.4 MG CAP PO SCH (09:22)
[2021-07-17] MEDS: HEPARIN NA (PORCINE) 5,000 UNITS/ML 1ML VIAL SQ SCH ×2 (09:22→22:22)
[2021-07-17] MEDS: amLODIPine BESYLATE 5 MG TABLET (FP) PO SCH (09:23)
[2021-07-17] MEDS ORDERED: LOSARTAN POTASSIUM 25 MG TABLET PO SCH (10:00)
[2021-07-17] MEDS: BUDESONIDE/FORMETEROL FUMARATE 160/4.5 mcg INHALER IH SCH ×2 (10:22→22:25)
[2021-07-17 12:54] LABS: BASO % 1.8 % (0-2.0); EOS % 3.1 % (0-4.5); HEMOGLOBIN 10.8 GM/dL (11.7-16.9); LYMPH % 27.2 % (8-40); MCHC 32.7 g/dl (32.0-35.9); MEAN CELL VOLUME 97.9 fl (80-96); MEAN PLT VOLUME 7.9 fl (7.5-11.1); MONO % 9.1 % (3.8-10.2); NEUT % 58.8 % (42.8-82.8); PLATELET COUNT 196 10^3/uL (134-434); RBC 3.37 M/mm3 (4.00-5.60); RDW 14.8 % (11.9-15.9)
[2021-07-17 13:43] LABS: BLOOD UREA NITROGEN 49.8 mg/dL (7-18); CALCIUM 8.6 mg/dL (8.5-10.1)
[2021-07-17 13:46] LABS: CREATININE 2.3 mg/dL (0.55-1.3)
[2021-07-17 13:48] LABS: BILIRUBIN,TOTAL 0.2 mg/dL (0.2-1); TOT PROT 6.1 g/dl (6.4-8.2)
[2021-07-17] MEDS: DEXTROSE 5%-0.45% SALINE 1,000 ML IV SCH (15:23)
[2021-07-17] MEDS: ATORVASTATIN CA 40 MG TABLET (FP) PO SCH (22:22)
[2021-07-17] MEDS: DOCUSATE SODIUM 100 MG CAPSULE (FP) PO SCH (22:22)
[2021-07-18] MEDS: DEXTROSE 5%-0.45% SALINE 1,000 ML IV SCH ×2 (05:26→18:16)
[2021-07-18] MEDS ORDERED: DEXTROSE 5%-WATER - 50 ML IVPB ONE (09:17)
[2021-07-18] MEDS ORDERED: cefTRIAXone SODIUM 1 GM VIAL ONE (09:17)
[2021-07-18] MEDS: amLODIPine BESYLATE 5 MG TABLET (FP) PO SCH (09:24)
[2021-07-18] MEDS: TAMSULOSIN HCL 0.4 MG CAP PO SCH (09:24)
[2021-07-18] MEDS: CEFTRIAXONE 1 GM in DEXTROSE 5%-WATER - 50 ML IVPB SCH (09:24)
[2021-07-18] MEDS: HEPARIN NA (PORCINE) 5,000 UNITS/ML 1ML VIAL SQ SCH ×2 (09:25→21:46)
[2021-07-18] MEDS: BUDESONIDE/FORMETEROL FUMARATE 160/4.5 mcg INHALER IH SCH ×2 (09:25→21:47)
[2021-07-18 12:21] LABS: BASO % 1.9 % (0-2.0); EOS % 3.7 % (0-4.5); HEMATOCRIT 33.9 % (35.4-49); HEMOGLOBIN 11.1 GM/dL (11.7-16.9); LYMPH % 39.1 % (8-40); MCH 31.9 pg (25.7-33.7); MCHC 32.7 g/dl (32.0-35.9); MEAN CELL VOLUME 97.5 fl (80-96); MEAN PLT VOLUME 8.1 fl (7.5-11.1); MONO % 8.5 % (3.8-10.2); NEUT % 46.8 % (42.8-82.8); PLATELET COUNT 208 10^3/uL (134-434); RBC 3.48 M/mm3 (4.00-5.60); RDW 14.3 % (11.9-15.9); WHITE BLOOD COUNT 3.6 K/mm3 (4.0-10.0)
[2021-07-18 12:25] LABS: CALCIUM 8.5 mg/dL (8.5-10.1)
[2021-07-18 12:26] LABS: BLOOD UREA NITROGEN 37.2 mg/dL (7-18)
[2021-07-18 12:30] LABS: BILIRUBIN,TOTAL 0.3 mg/dL (0.2-1); TOT PROT 6.2 g/dl (6.4-8.2)
[2021-07-18] MEDS: DOCUSATE SODIUM 100 MG CAPSULE (FP) PO SCH (21:46)
[2021-07-18] MEDS: ATORVASTATIN CA 40 MG TABLET (FP) PO SCH (21:46)
[2021-07-19] MEDS ORDERED: DEXTROSE 5%-WATER - 50 ML IVPB ONE (09:04)
[2021-07-19] MEDS ORDERED: cefTRIAXone SODIUM 1 GM VIAL ONE (09:04)
[2021-07-19] MEDS: HEPARIN NA (PORCINE) 5,000 UNITS/ML 1ML VIAL SQ SCH ×2 (09:10→21:51)
[2021-07-19] MEDS: CEFTRIAXONE 1 GM in DEXTROSE 5%-WATER - 50 ML IVPB SCH (09:10)
[2021-07-19] MEDS: amLODIPine BESYLATE 5 MG TABLET (FP) PO SCH (09:10)
[2021-07-19] MEDS: TAMSULOSIN HCL 0.4 MG CAP PO SCH (09:10)
[2021-07-19] MEDS: DEXTROSE 5%-0.45% SALINE 1,000 ML IV SCH ×2 (09:10→22:58)
[2021-07-19] MEDS: BUDESONIDE/FORMETEROL FUMARATE 160/4.5 mcg INHALER IH SCH ×2 (09:11→21:54)
[2021-07-19 14:41] VITALS: BMI 18.6
[2021-07-19] MEDS: DOCUSATE SODIUM 100 MG CAPSULE (FP) PO SCH (21:50)
[2021-07-19] MEDS: ATORVASTATIN CA 40 MG TABLET (FP) PO SCH (21:51)
[2021-07-20 07:24] LABS: BASO % 1.5 % (0-2.0); EOS % 3.9 % (0-4.5); HEMATOCRIT 29.2 % (35.4-49); HEMOGLOBIN 9.6 GM/dL (11.7-16.9); LYMPH % 45.9 % (8-40); MCH 32.1 pg (25.7-33.7); MCHC 32.9 g/dl (32.0-35.9); MEAN CELL VOLUME 97.7 fl (80-96); MEAN PLT VOLUME 8.3 fl (7.5-11.1); MONO % 9.2 % (3.8-10.2); NEUT % 39.5 % (42.8-82.8); PLATELET COUNT 164 10^3/uL (134-434); RBC 2.99 M/mm3 (4.00-5.60); RDW 14.5 % (11.9-15.9); WHITE BLOOD COUNT 3.1 K/mm3 (4.0-10.0)
[2021-07-20 07:26] LABS: ALBUMIN 2.7 g/dl (3.4-5.0); BLOOD UREA NITROGEN 24.2 mg/dL (7-18)
[2021-07-20 07:29] LABS: CREATININE 1.8 mg/dL (0.55-1.3)
[2021-07-20 07:30] LABS: BILIRUBIN,TOTAL 0.4 mg/dL (0.2-1); TOT PROT 5.2 g/dl (6.4-8.2)
[2021-07-20] MEDS ORDERED: DEXTROSE 5%-WATER - 50 ML IVPB ONE (09:20)
[2021-07-20] MEDS ORDERED: cefTRIAXone SODIUM 1 GM VIAL ONE (09:20)
[2021-07-20] MEDS: HEPARIN NA (PORCINE) 5,000 UNITS/ML 1ML VIAL SQ SCH ×2 (09:21→21:25)
[2021-07-20] MEDS: CEFTRIAXONE 1 GM in DEXTROSE 5%-WATER - 50 ML IVPB SCH (09:21)
[2021-07-20] MEDS: amLODIPine BESYLATE 5 MG TABLET (FP) PO SCH (09:21)
[2021-07-20] MEDS: DEXTROSE 5%-0.45% SALINE 1,000 ML IV SCH ×2 (09:21→21:28)
[2021-07-20] MEDS: TAMSULOSIN HCL 0.4 MG CAP PO SCH (09:21)
[2021-07-20] MEDS: BUDESONIDE/FORMETEROL FUMARATE 160/4.5 mcg INHALER IH SCH ×2 (09:22→21:28)
[2021-07-20] MEDS ORDERED: SODIUM ZIRCONIUM CYCLOSILICATE (LOKELMA) 10 GM PACKET PO SCH (14:30)
[2021-07-20] MEDS: DOCUSATE SODIUM 100 MG CAPSULE (FP) PO SCH (21:25)
[2021-07-20] MEDS: ATORVASTATIN CA 40 MG TABLET (FP) PO SCH (21:25)
[2021-07-21] MEDS: DEXTROSE 5%-0.45% SALINE 1,000 ML IV SCH (06:34)
[2021-07-21] MEDS: TAMSULOSIN HCL 0.4 MG CAP PO SCH (08:27)
[2021-07-21] MEDS ORDERED: DEXTROSE 5%-WATER - 50 ML IVPB ONE (09:45)
[2021-07-21] MEDS ORDERED: cefTRIAXone SODIUM 1 GM VIAL ONE (09:45)
[2021-07-21] MEDS: amLODIPine BESYLATE 5 MG TABLET (FP) PO SCH (09:51)
[2021-07-21] MEDS: CEFTRIAXONE 1 GM in DEXTROSE 5%-WATER - 50 ML IVPB SCH (09:51)
[2021-07-21] MEDS: HEPARIN NA (PORCINE) 5,000 UNITS/ML 1ML VIAL SQ SCH (09:51)
[2021-07-21] MEDS: BUDESONIDE/FORMETEROL FUMARATE 160/4.5 mcg INHALER IH SCH (09:56)
[2021-07-21 14:37] VITALS: BP 131/82; PULSE 67; TEMP 97.9
== END 2021-07-21 15:00 | DRG 683 ==
LOC: JER 16:35 → JERBED 21:53 → INTOOBSV 23:17 → OBSVTOIN 23:17 → J6S 07-17 01:22
PROVIDERS: ADMIT Internal Medicine; ATTEND Internal Medicine
DX: N17.9 Acute kidney failure, unspecified (principal); N39.0 Urinary tract infection, site not specified; E87.2 Acidosis; E78.5 Hyperlipidemia, unspecified; I25.2 Old myocardial infarction; B96.1 Klebsiella pneumoniae [K. pneumoniae] as the cause of diseases classified elsewhere; E87.5 Hyperkalemia; J45.909 Unspecified asthma, uncomplicated; F03.90 Unspecified dementia, unspecified severity, without behavioral disturbance, psychotic disturbance, mood disturbance, and anxiety; M10.9 Gout, unspecified; R19.7 Diarrhea, unspecified; E86.0 Dehydration; N40.0 Benign prostatic hyperplasia without lower urinary tract symptoms; R80.9 Proteinuria, unspecified; I12.9 Hypertensive chronic kidney disease with stage 1 through stage 4 chronic kidney disease, or unspecified chronic kidney disease; N18.9 Chronic kidney disease, unspecified; Z99.3 Dependence on wheelchair
CPT/HCPCS: 36415; 71045-TC-FY; 76775-TC; 80048; 80053; 81003; 82550; 82553; 82962; 83735; 84484; 85025; 87086; 87186; 87804; 87807; 93005; 93010; 97116-GP; 97162-GP; 99285-25; C9803-CS; G0378; J1644; U0003; U0005

== ENCOUNTER 2022-09-08 15:10 | Inpatient (IN) | payer OTHER, BC ==
[2022-09-08] MEDS ORDERED: LACTATED RINGERS SOLUTION 1000 ML INFUS.BAG IV ONE (15:35)
[2022-09-08 16:23] LABS: BASO % 0.6 % (0-2.0); HEMATOCRIT 39.7 % (35.4-49); HEMOGLOBIN 13.1 GM/dL (11.7-16.9); LYMPH % 37.5 % (8-40); MCH 31.2 pg (25.7-33.7); MCHC 33.1 g/dl (32.0-35.9); MEAN CELL VOLUME 94.1 fl (80-96); MEAN PLT VOLUME 8.3 fl (7.5-11.1); MONO % 6.4 % (3.8-10.2); NEUT % 50.5 % (42.8-82.8); RBC 4.21 M/mm3 (4.00-5.60); RDW 14.7 % (11.9-15.9); WHITE BLOOD COUNT 4.9 K/mm3 (4.0-10.0)
[2022-09-08 16:24] LABS: PLATELET COUNT 222 10^3/uL (134-434)
[2022-09-08 16:41] LABS: POTASSIUM 5.7 mmol/L (3.5-5.1)
[2022-09-08 16:43] LABS: CALCIUM 9.3 mg/dL (8.5-10.1)
[2022-09-08 16:44] LABS: ALBUMIN 3.8 g/dl (3.4-5.0); MAGNESIUM 1.7 mg/dL (1.8-2.4)
[2022-09-08 16:47] LABS: CREATININE 2.6 mg/dL (0.55-1.3)
[2022-09-08] MEDS ORDERED: SODIUM ZIRCONIUM CYCLOSILICATE (LOKELMA) 5 GM PACKET PO ONE ×2 (16:47→22:45)
[2022-09-08 16:48] LABS: TOT PROT 7.1 g/dl (6.4-8.2)
[2022-09-08 16:49] LABS: BILIRUBIN,TOTAL 0.4 mg/dL (0.2-1)
[2022-09-08] MEDS ORDERED: MAGNESIUM SULF 50% (8.12 MEQ/2 ML-1 GM VIAL) IVPB ONE (16:54)
[2022-09-08] MEDS ORDERED: SODIUM ZIRCONIUM CYCLOSILICATE (LOKELMA) 5 GM PACKET ONE (17:03)
[2022-09-08] MEDS ORDERED: MAGNESIUM SULFATE IN WATER 2 GM/50 ML IVPB IVPB ONE (17:04)
[2022-09-08 17:29] LABS: URINE APPEARANCE CLEAR; URINE BILIRUBIN NEGATIVE (NEGATIVE); URINE COLOR YELLOW; URINE GLUCOSE (UA) NEGATIVE (NEGATIVE); URINE KETONE NEGATIVE (NEGATIVE); URINE LEUK ESTERASE NEGATIVE (NEGATIVE); URINE NITRITE NEGATIVE (NEGATIVE); URINE PROTEIN NEGATIVE (NEGATIVE); URINE UROBILINOGEN 0.2 mg/dL (0.2-1.0)
[2022-09-08 17:58] LABS: VENOUS BASE EXCESS -7.3 mmol/L (-2-2); VENOUS O2 SATURATION 26.6 % (70-80); VENOUS PH 7.264 (7.310-7.410)
[2022-09-08 21:07] LABS: CHLORIDE 114 mmol/L (98-107); SODIUM 141 mmol/L (136-145)
[2022-09-08 21:09] LABS: CALCIUM 9.2 mg/dL (8.5-10.1); CO2 21 mmol/L (21-32)
[2022-09-08 21:10] LABS: BLOOD UREA NITROGEN 44.7 mg/dL (7-18); GLUCOSE,RANDOM 90 mg/dL (74-106)
[2022-09-08 21:13] LABS: ANION GAP 7 MMOL/L (8-16); CREATININE 2.4 mg/dL (0.55-1.3); POTASSIUM 6.3 mmol/L (3.5-5.1)
[2022-09-08] MEDS: DEXTROSE 5%-0.45% SALINE 1,000 ML IV SCH (22:41)
[2022-09-09 09:15] LABS: BASO % 3.2 % (0-2.0); EOS % 6.4 % (0-4.5); HEMOGLOBIN 11.6 GM/dL (11.7-16.9); LYMPH % 43.2 % (8-40); MCH 30.9 pg (25.7-33.7); MCHC 32.3 g/dl (32.0-35.9); MEAN CELL VOLUME 95.6 fl (80-96); MEAN PLT VOLUME 9.4 fl (7.5-11.1); MONO % 7.3 % (3.8-10.2); NEUT % 39.9 % (42.8-82.8); PLATELET COUNT 192 10^3/uL (134-434); RBC 3.76 M/mm3 (4.00-5.60); RDW 14.1 % (11.9-15.9); WHITE BLOOD COUNT 4.9 K/mm3 (4.0-10.0)
[2022-09-09 09:29] LABS: POTASSIUM 4.9 mmol/L (3.5-5.1)
[2022-09-09 09:31] LABS: CALCIUM 8.9 mg/dL (8.5-10.1)
[2022-09-09 09:33] LABS: ALBUMIN 3.1 g/dl (3.4-5.0); BLOOD UREA NITROGEN 40.7 mg/dL (7-18)
[2022-09-09 09:36] LABS: CREATININE 2.2 mg/dL (0.55-1.3)
[2022-09-09 09:37] LABS: TOT PROT 6.1 g/dl (6.4-8.2)
[2022-09-09 09:44] LABS: BILIRUBIN,TOTAL 0.4 mg/dL (0.2-1)
[2022-09-09] MEDS ORDERED: LOSARTAN POTASSIUM 25 MG TABLET PO SCH (10:00)
[2022-09-09] MEDS ORDERED: BUDESONIDE/FORMETEROL FUMARATE 160/4.5 mcg INHALER IH SCH (10:00)
[2022-09-09] MEDS: TAMSULOSIN HCL 0.4 MG CAP PO SCH (10:34)
[2022-09-09] MEDS: amLODIPine BESYLATE 5 MG TABLET (FP) PO SCH (10:34)
[2022-09-09] MEDS: TIOTROPIUM BROMIDE 2.5 MCG (SPIRIVA) RESPIMAT INHALER IH SCH (10:37)
[2022-09-09] MEDS: SODIUM BICARBONATE 325 MG TABLET PO SCH (13:18)
[2022-09-09] MEDS: DEXTROSE 5%-0.45% SALINE 1,000 ML IV SCH (13:46)
[2022-09-09] MEDS ORDERED: ALBUTEROL SO4 HFA INHALER IH PRN (15:15)
[2022-09-09] MEDS ORDERED: ALBUTEROL SO4 0.083% IH SOL 2.5 MG/3 ML VIAL.NEB. NEB PRN (15:15)
[2022-09-09] MEDS: HALOPERIDOL 0.5 MG TABLET PO PRN (16:33)
[2022-09-09] MEDS: BUDESONIDE/FORMETEROL FUMARATE 80/4.5 mcg INHALER IH SCH (21:56)
[2022-09-09] MEDS: DOCUSATE SODIUM 100 MG CAPSULE (FP) PO SCH (21:56)
[2022-09-09] MEDS: ATORVASTATIN CA 40 MG TABLET (FP) PO SCH (21:56)
[2022-09-10] MEDS: HALOPERIDOL 0.5 MG TABLET PO PRN (09:38)
[2022-09-10] MEDS: SODIUM BICARBONATE 325 MG TABLET PO SCH (09:38)
[2022-09-10] MEDS: amLODIPine BESYLATE 5 MG TABLET (FP) PO SCH (09:38)
[2022-09-10] MEDS: BUDESONIDE/FORMETEROL FUMARATE 80/4.5 mcg INHALER IH SCH ×2 (09:38→21:37)
[2022-09-10] MEDS: TAMSULOSIN HCL 0.4 MG CAP PO SCH (09:38)
[2022-09-10] MEDS: TIOTROPIUM BROMIDE 2.5 MCG (SPIRIVA) RESPIMAT INHALER IH SCH (09:39)
[2022-09-10 10:01] LABS: HEMATOCRIT 34.6 % (35.4-49); HEMOGLOBIN 11.6 GM/dL (11.7-16.9); MCH 31.6 pg (25.7-33.7); MCHC 33.6 g/dl (32.0-35.9); MEAN CELL VOLUME 94.1 fl (80-96); MEAN PLT VOLUME 8.5 fl (7.5-11.1); PLATELET COUNT 188 10^3/uL (134-434); RBC 3.68 M/mm3 (4.00-5.60); RDW 14.5 % (11.9-15.9)
[2022-09-10 10:19] LABS: POTASSIUM 4.9 mmol/L (3.5-5.1)
[2022-09-10 10:23] LABS: ALBUMIN 3.2 g/dl (3.4-5.0); BLOOD UREA NITROGEN 38.2 mg/dL (7-18); CALCIUM 8.8 mg/dL (8.5-10.1)
[2022-09-10 10:25] LABS: CREATININE 2.3 mg/dL (0.55-1.3)
[2022-09-10 10:28] LABS: BILIRUBIN,TOTAL 0.4 mg/dL (0.2-1); TOT PROT 6.1 g/dl (6.4-8.2)
[2022-09-10 14:57] VITALS: BMI 19.8
[2022-09-10] MEDS: ATORVASTATIN CA 40 MG TABLET (FP) PO SCH (21:36)
[2022-09-10] MEDS: DOCUSATE SODIUM 100 MG CAPSULE (FP) PO SCH (21:36)
[2022-09-11] MEDS: amLODIPine BESYLATE 5 MG TABLET (FP) PO SCH (09:30)
[2022-09-11] MEDS: TAMSULOSIN HCL 0.4 MG CAP PO SCH (09:30)
[2022-09-11] MEDS: SODIUM BICARBONATE 325 MG TABLET PO SCH (09:30)
[2022-09-11] MEDS: TIOTROPIUM BROMIDE 2.5 MCG (SPIRIVA) RESPIMAT INHALER IH SCH (09:31)
[2022-09-11] MEDS: BUDESONIDE/FORMETEROL FUMARATE 80/4.5 mcg INHALER IH SCH ×2 (09:38→21:25)
[2022-09-11] MEDS ORDERED: ACETAMINOPHEN 325 MG TABLET (FP) PO PRN (12:14)
[2022-09-11 14:26] VITALS: RESP 18
[2022-09-11] MEDS: ATORVASTATIN CA 40 MG TABLET (FP) PO SCH (21:25)
[2022-09-11] MEDS: DOCUSATE SODIUM 100 MG CAPSULE (FP) PO SCH (21:25)
[2022-09-12 09:23] LABS: POTASSIUM 5.2 mmol/L (3.5-5.1)
[2022-09-12] MEDS: SODIUM BICARBONATE 325 MG TABLET PO SCH (09:24)
[2022-09-12] MEDS: TAMSULOSIN HCL 0.4 MG CAP PO SCH (09:24)
[2022-09-12] MEDS: amLODIPine BESYLATE 5 MG TABLET (FP) PO SCH (09:24)
[2022-09-12] MEDS: BUDESONIDE/FORMETEROL FUMARATE 80/4.5 mcg INHALER IH SCH (09:26)
[2022-09-12] MEDS: TIOTROPIUM BROMIDE 2.5 MCG (SPIRIVA) RESPIMAT INHALER IH SCH (09:26)
[2022-09-12 09:34] LABS: BLOOD UREA NITROGEN 43.7 mg/dL (7-18)
[2022-09-12 09:38] LABS: CREATININE 2.3 mg/dL (0.55-1.3)
[2022-09-12 15:05] VITALS: BP 137/60; PULSE 72; TEMP 97.9
[2022-09-12] MEDS ORDERED: SODIUM ZIRCONIUM CYCLOSILICATE (LOKELMA) 5 GM PACKET PO SCH (15:30)
== END 2022-09-12 16:49 | disposition home health service (06) | DRG 682 ==
LOC: JER 15:10 → JERBED 16:55 → J6S 18:35 → OBSVTOIN 22:23
PROVIDERS: ADMIT Internal Medicine; ATTEND Internal Medicine
DX: N17.9 Acute kidney failure, unspecified (principal); E43 Unspecified severe protein-calorie malnutrition; E87.20 Acidosis, unspecified; Z68.1 Body mass index [BMI] 19.9 or less, adult; F03.90 Unspecified dementia, unspecified severity, without behavioral disturbance, psychotic disturbance, mood disturbance, and anxiety; N40.0 Benign prostatic hyperplasia without lower urinary tract symptoms; J44.9 Chronic obstructive pulmonary disease, unspecified; E87.5 Hyperkalemia; I12.9 Hypertensive chronic kidney disease with stage 1 through stage 4 chronic kidney disease, or unspecified chronic kidney disease; N18.9 Chronic kidney disease, unspecified; E78.5 Hyperlipidemia, unspecified
CPT/HCPCS: 0241U-QW; 36415; 70450-TC; 71045-TC-FY; 71250-TC; 80048; 80053; 81003; 82803; 82962; 83735; 84439; 84443; 84484; 85025; 85027; 86850; 86900; 86901; 87086; 93005; 93010; 94010; 97116-GP; 97162-GP; 99285-25; G0378

== ENCOUNTER 2022-10-14 14:02 | Emergency (ER) | payer OTHER, BC ==
[2022-10-14 14:36] VITALS: PULSE 61; RESP 18; TEMP 98.3
[2022-10-14] MEDS ORDERED: LACTATED RINGERS SOLUTION 1000 ML INFUS.BAG IV ONE (14:58)
[2022-10-14 15:35] LABS: BASO % 0.7 % (0-2.0); EOS % 1.4 % (0-4.5); HEMATOCRIT 36.5 % (35.4-49); HEMOGLOBIN 11.5 GM/dL (11.7-16.9); LYMPH % 24.9 % (8-40); MCH 31.3 pg (25.7-33.7); MCHC 31.5 g/dl (32.0-35.9); MEAN CELL VOLUME 99.2 fl (80-96); MEAN PLT VOLUME 8.6 fl (7.5-11.1); MONO % 6.6 % (3.8-10.2); NEUT % 66.4 % (42.8-82.8); PLATELET COUNT 215 10^3/uL (134-434); RBC 3.68 M/mm3 (4.00-5.60); RDW 15.9 % (11.9-15.9); WHITE BLOOD COUNT 8.2 K/mm3 (4.0-10.0)
[2022-10-14 15:46] LABS: POTASSIUM 5.4 mmol/L (3.5-5.1)
[2022-10-14 15:48] LABS: CALCIUM 8.7 mg/dL (8.5-10.1)
[2022-10-14 15:49] LABS: ALBUMIN 3.5 g/dl (3.4-5.0); BLOOD UREA NITROGEN 37.3 mg/dL (7-18); MAGNESIUM 1.4 mg/dL (1.8-2.4)
[2022-10-14 15:52] LABS: CREATININE 2.5 mg/dL (0.55-1.3); PHOSPHOROUS 3.4 mg/dL (2.5-4.9)
[2022-10-14 15:54] LABS: BILIRUBIN,TOTAL 0.2 mg/dL (0.2-1); TOT PROT 6.4 g/dl (6.4-8.2)
[2022-10-14] MEDS ORDERED: MAGNESIUM SULF 50% (8.12 MEQ/2 ML-1 GM VIAL) IVPB ONE ×2 (15:56→16:09)
[2022-10-14] MEDS ORDERED: MAGNESIUM SULFATE IN WATER 2 GM/50 ML IVPB IVPB ONE (16:07)
[2022-10-14 17:12] LABS: URINE APPEARANCE CLEAR; URINE BILIRUBIN NEGATIVE (NEGATIVE); URINE COLOR YELLOW; URINE GLUCOSE (UA) NEGATIVE (NEGATIVE); URINE KETONE NEGATIVE (NEGATIVE); URINE LEUK ESTERASE NEGATIVE (NEGATIVE); URINE NITRITE NEGATIVE (NEGATIVE); URINE PROTEIN TRACE (NEGATIVE); URINE UROBILINOGEN 0.2 mg/dL (0.2-1.0)
[2022-10-14 18:07] VITALS: BP 113/77
== END 2022-10-15 00:01 | disposition home or self-care (01) ==
LOC: JER 14:02
DX: R53.1 Weakness (principal); R62.7 Adult failure to thrive
CPT/HCPCS: 0241U-QW; 36415; 71045-TC-FY; 80053; 81003; 82550; 83735; 84100; 84484; 85025; 87086; 93005; 93010; 99285-25

== ENCOUNTER 2022-11-02 07:57 | Emergency (ER) | payer OTHER, BC ==
[2022-11-02 08:24] VITALS: TEMP 98.3
[2022-11-02 09:15] LABS: EOS % 2.6 % (0-4.5); HEMATOCRIT 30.1 % (35.4-49); HEMOGLOBIN 9.9 GM/dL (11.7-16.9); LYMPH % 32.9 % (8-40); MCHC 32.9 g/dl (32.0-35.9); MEAN CELL VOLUME 97.4 fl (80-96); MEAN PLT VOLUME 8.1 fl (7.5-11.1); MONO % 10.3 % (3.8-10.2); NEUT % 53.2 % (42.8-82.8); PLATELET COUNT 232 10^3/uL (134-434); RBC 3.09 M/mm3 (4.00-5.60); RDW 14.7 % (11.9-15.9); WHITE BLOOD COUNT 4.7 K/mm3 (4.0-10.0)
[2022-11-02 09:46] LABS: CALCIUM 8.4 mg/dL (8.5-10.1)
[2022-11-02 09:47] LABS: BLOOD UREA NITROGEN 24.5 mg/dL (7-18)
[2022-11-02 09:50] LABS: CREATININE 1.9 mg/dL (0.55-1.3)
[2022-11-02 09:51] LABS: BILIRUBIN,TOTAL 0.3 mg/dL (0.2-1); TOT PROT 5.5 g/dl (6.4-8.2)
[2022-11-02 10:22] LABS: EPI CELLS 6 /uL (0-25.1); HYALINE CASTS 0 /uL (0-3.1); PH,URINE 6.5 (5.0-8.0); URINE APPEARANCE CLEAR; URINE BACTERIA 42 /uL (0-1359); URINE BILIRUBIN NEGATIVE (NEGATIVE); URINE COLOR YELLOW; URINE GLUCOSE (UA) NEGATIVE (NEGATIVE); URINE KETONE NEGATIVE (NEGATIVE); URINE LEUK ESTERASE TRACE (NEGATIVE); URINE NITRITE NEGATIVE (NEGATIVE); URINE PROTEIN NEGATIVE (NEGATIVE); URINE RBC 17 /uL (0-23.9); URINE UROBILINOGEN 0.2 mg/dL (0.2-1.0); URINE WBC 24 /uL (0-25.8)
[2022-11-02 12:18] VITALS: BP 130/78; PULSE 63; RESP 18
== END 2022-11-02 13:39 | disposition home or self-care (01) ==
LOC: JER 07:57
DX: K59.00 Constipation, unspecified (principal); D64.9 Anemia, unspecified; R35.0 Frequency of micturition
CPT/HCPCS: 36415; 74018-TC-FY; 80053; 81003; 82272; 85025; 87086; 99284-25

== ENCOUNTER 2022-11-07 11:07 | Emergency (ER) | payer OTHER, BC ==
[2022-11-07 11:17] VITALS: BMI 19.3
[2022-11-07] MEDS ORDERED: SODIUM PHOSPHATE/NA BIPHOS 133 ML ENEMA PR ONE (13:17)
[2022-11-07] MEDS ORDERED: PEG 3350/NA SULF BICARB CL/KCL 4000 ML SOLN.RECON PO ONE (13:17)
[2022-11-07] MEDS ORDERED: ACETAMINOPHEN 325 MG TABLET (FP) PO ONE (13:17)
[2022-11-07] MEDS ORDERED: ACETAMINOPHEN 325 MG TABLET (FP) ONE (15:25)
[2022-11-07 15:45] LABS: BASO % 2.2 % (0-2.0); EOS % 3.6 % (0-4.5); HEMATOCRIT 34.8 % (35.4-49); HEMOGLOBIN 11.6 GM/dL (11.7-16.9); LYMPH % 39.4 % (8-40); MCH 31.8 pg (25.7-33.7); MCHC 33.3 g/dl (32.0-35.9); MEAN CELL VOLUME 95.5 fl (80-96); MEAN PLT VOLUME 7.6 fl (7.5-11.1); MONO % 10.2 % (3.8-10.2); NEUT % 44.6 % (42.8-82.8); PLATELET COUNT 263 10^3/uL (134-434); RBC 3.65 M/mm3 (4.00-5.60); RDW 14.3 % (11.9-15.9); URINE APPEARANCE CLEAR; URINE BILIRUBIN NEGATIVE (NEGATIVE); URINE COLOR YELLOW; URINE GLUCOSE (UA) NEGATIVE (NEGATIVE); URINE KETONE NEGATIVE (NEGATIVE); URINE LEUK ESTERASE NEGATIVE (NEGATIVE); URINE NITRITE NEGATIVE (NEGATIVE); URINE PROTEIN NEGATIVE (NEGATIVE); URINE UROBILINOGEN 0.2 mg/dL (0.2-1.0); WHITE BLOOD COUNT 4.6 K/mm3 (4.0-10.0)
[2022-11-07 16:06] LABS: POTASSIUM 5.3 mmol/L (3.5-5.1)
[2022-11-07 16:09] LABS: CALCIUM 8.8 mg/dL (8.5-10.1)
[2022-11-07 16:10] LABS: ALBUMIN 3.3 g/dl (3.4-5.0); BLOOD UREA NITROGEN 16.6 mg/dL (7-18); MAGNESIUM 1.5 mg/dL (1.8-2.4)
[2022-11-07 16:12] LABS: CREATININE 1.9 mg/dL (0.55-1.3)
[2022-11-07 16:14] LABS: BILIRUBIN,TOTAL 0.3 mg/dL (0.2-1); TOT PROT 6.3 g/dl (6.4-8.2)
[2022-11-07 18:26] VITALS: BP 146/70; PULSE 62; RESP 18; TEMP 97.7
== END 2022-11-07 18:20 | disposition home or self-care (01) ==
LOC: JER 11:07
DX: R10.30 Lower abdominal pain, unspecified (principal); K59.00 Constipation, unspecified; R42 Dizziness and giddiness; R63.0 Anorexia; E87.5 Hyperkalemia; E83.42 Hypomagnesemia
CPT/HCPCS: 36415; 74018-TC-FY; 80053; 81003; 83735; 85025; 87086; 99284-25

== ENCOUNTER 2024-08-14 16:31 | Inpatient (IN) | payer OTHER, BC ==
[2024-08-14 17:30] LABS: ABSOLUTE IMMATURE GRANULOCYTES 0.06 x10^3/uL (0.0-0.031); BASOPHILS # 0.04 x10^3/uL (0.01-0.08); EOSINOPHIL % 0.8 % (0.8-7.0); HEMATOCRIT 37.7 % (40.1-51.0); HEMOGLOBIN 11.8 g/dL (13.7-17.5); MCHC 31.3 g/dl (32.3-36.5); MEAN CELL VOLUME 96.9 fl (79.0-92.2); MEAN PLT VOLUME 11.7 fl (9.4-12.4); MONOCYTE # 0.67 x10^3/uL (0.30-0.82); MONOCYTE % 5.1 % (5.3-12.2); PLATELET COUNT 222 x10^3/uL (163-337); RDW 14.5 % (12.6-16.6)
[2024-08-14 18:20] LABS: ALBUMIN 3.6 g/dl (3.4-5.0); BLOOD UREA NITROGEN 59.9 mg/dL (7-18); CALCIUM 10.2 mg/dL (8.5-10.1); CHLORIDE 120 mmol/L (98-107); CO2 15 mmol/L (21-32); MAGNESIUM 1.9 mg/dL (1.8-2.4); SODIUM 140 mmol/L (136-145)
[2024-08-14 18:21] LABS: GLUCOSE,RANDOM 107 mg/dL (74-106)
[2024-08-14 18:23] LABS: CREATININE 2.6 mg/dL (0.55-1.3); SGOT/AST 22 U/L (15-37); SGPT/ALT 18 U/L (13-61)
[2024-08-14 18:25] LABS: BILIRUBIN,TOTAL 0.6 mg/dL (0.2-1); TOT PROT 7.1 g/dl (6.4-8.2)
[2024-08-14 18:26] LABS: ALK PHOS 127 U/L (45-117)
[2024-08-14 18:28] LABS: ANION GAP 6 mmol/L (4-13); POTASSIUM 8.2 mmol/L (3.5-5.1)
[2024-08-14] MEDS ORDERED: CLOPIDOGREL BISULFATE 300 MG TABLET ONE (19:22)
[2024-08-14] MEDS ORDERED: ASPIRIN 81 MG CHEWABLE TABLETS ONE (19:22)
[2024-08-14] MEDS: ASPIRIN 81 MG CHEWABLE TABLETS PO ONE (19:40)
[2024-08-14] MEDS: CLOPIDOGREL BISULFATE 300 MG TABLET PO ONE (19:40)
[2024-08-14 20:57] LABS: CHLORIDE 120 mmol/L (98-107); SODIUM 143 mmol/L (136-145)
[2024-08-14 21:00] LABS: ALBUMIN 3.8 g/dl (3.4-5.0); BLOOD UREA NITROGEN 60.7 mg/dL (7-18); CALCIUM 10.3 mg/dL (8.5-10.1); CO2 13 mmol/L (21-32)
[2024-08-14 21:03] LABS: CREATININE 2.8 mg/dL (0.55-1.3); GLUCOSE,RANDOM 106 mg/dL (74-106); SGOT/AST 11 U/L (15-37); SGPT/ALT 17 U/L (13-61)
[2024-08-14 21:05] LABS: BILIRUBIN,TOTAL 0.4 mg/dL (0.2-1); TOT PROT 7.1 g/dl (6.4-8.2)
[2024-08-14 21:06] LABS: ALK PHOS 127 U/L (45-117)
[2024-08-14 21:13] LABS: ANION GAP 10 mmol/L (4-13); POTASSIUM 7.6 mmol/L (3.5-5.1)
[2024-08-14 21:13] LABS: POTASSIUM 7.7 mmol/L (3.5-5.1)
[2024-08-14] MEDS ORDERED: CALCIUM GLUCONATE 10% - 1,000 MG/10 ML VIAL ONE (21:32)
[2024-08-14] MEDS ORDERED: DEXTROSE 50%-WATER 25 GM/50 ML DISP.SYRIN ONE (21:32)
[2024-08-14] MEDS ORDERED: INSULIN REGULAR HUMAN 100 UNITS/ML *VIAL ONE (21:33)
[2024-08-14] MEDS: INSULIN REGULAR HUMAN 100 UNITS/ML *VIAL IVPUSH ONE (21:41)
[2024-08-14] MEDS: CALCIUM GLUCONATE 10% - 1,000 MG/10 ML VIAL IVPUSH ONE (21:41)
[2024-08-14] MEDS: DEXTROSE 50%-WATER - 25 GM/50 ML VIAL IVPUSH ONE (21:42)
[2024-08-14 23:16] LABS: CHLORIDE 120 mmol/L (98-107); SODIUM 142 mmol/L (136-145)
[2024-08-14 23:17] LABS: BLOOD UREA NITROGEN 61.6 mg/dL (7-18); CALCIUM 10.3 mg/dL (8.5-10.1); CO2 15 mmol/L (21-32)
[2024-08-14 23:18] LABS: GLUCOSE,RANDOM 126 mg/dL (74-106)
[2024-08-14 23:21] LABS: CREATININE 2.8 mg/dL (0.55-1.3)
[2024-08-14 23:23] LABS: ANION GAP 7 mmol/L (4-13); POTASSIUM 6.1 mmol/L (3.5-5.1)
[2024-08-14] MEDS: SODIUM CHLORIDE 0.9% 500 ML INFUS.BAG IV ONE (23:45)
[2024-08-15] MEDS: SODIUM CHLORIDE 0.45% 1,000 ML IV SCH (03:49)
[2024-08-15] MEDS: SODIUM ZIRCONIUM CYCLOSILICATE (LOKELMA) 5 GM PACKET PO ONE (04:22)
[2024-08-15 07:14] LABS: ABSOLUTE IMMATURE GRANULOCYTES 0.05 x10^3/uL (0.0-0.031); BASOPHILS # 0.07 x10^3/uL (0.01-0.08); EOSINOPHILS # 0.12 x10^3/uL (0.04-0.54); HEMATOCRIT 35.6 % (40.1-51.0); HEMOGLOBIN 11.2 g/dL (13.7-17.5); MCHC 31.5 g/dl (32.3-36.5); MEAN PLT VOLUME 10.6 fl (9.4-12.4); MONOCYTE # 0.96 x10^3/uL (0.30-0.82); MONOCYTE % 7.9 % (5.3-12.2); PLATELET COUNT 202 x10^3/uL (163-337); RDW 14.1 % (12.6-16.6)
[2024-08-15] MEDS ORDERED: ALBUTEROL SO4 2.5/IPRATROPIUM 0.5 INH SOL 3 ML VIAL.NEB. NEB PRN (07:24)
[2024-08-15 07:37] LABS: CHLORIDE 120 mmol/L (98-107); SODIUM 141 mmol/L (136-145)
[2024-08-15] MEDS: ALBUTEROL SO4 2.5/IPRATROPIUM 0.5 INH SOL 3 ML VIAL.NEB. NEB SCH (07:40)
[2024-08-15 07:42] LABS: CALCIUM 9.7 mg/dL (8.5-10.1)
[2024-08-15 07:43] LABS: BLOOD UREA NITROGEN 61.2 mg/dL (7-18); CO2 15 mmol/L (21-32); GLUCOSE,RANDOM 92 mg/dL (74-106)
[2024-08-15 07:46] LABS: CREATININE 2.5 mg/dL (0.55-1.3)
[2024-08-15 07:56] LABS: ANION GAP 6 mmol/L (4-13); POTASSIUM 7.1 mmol/L (3.5-5.1)
[2024-08-15] MEDS: HYDROCHLOROTHIAZIDE 25 MG TABLET (FP) PO SCH (10:10)
[2024-08-15] MEDS: POLYETHYLENE GLYCOL (HEALTHYLAX) 3350 17 GM PACKET PO SCH (10:11)
[2024-08-15] MEDS: BUDESONIDE/FORMETEROL FUMARATE 160/4.5 mcg INHALER IH SCH (10:11)
[2024-08-15] MEDS: SODIUM ZIRCONIUM CYCLOSILICATE (LOKELMA) 5 GM PACKET PO SCH ×2 (10:11→13:48)
[2024-08-15] MEDS: FUROSEMIDE 40 MG/4 ML INJECTABLE VIAL IVPUSH ONE (10:41)
[2024-08-15] MEDS: ALBUTEROL SO4 0.5 % INH SOLN 2.5 MG/0.5 ML VIAL.NEB. NEB ONE (11:23)
[2024-08-15 11:37] LABS: BLOOD UREA NITROGEN 62.3 mg/dL (7-18); CALCIUM 9.3 mg/dL (8.5-10.1); CO2 15 mmol/L (21-32)
[2024-08-15] MEDS: DEXTROSE 50%-WATER 25 GM/50 ML DISP.SYRIN IVPUSH ONE (11:37)
[2024-08-15] MEDS: SODIUM BICARBONATE 8.4% 50 MEQ/50 ML DISP.SYRIN IVPUSH ONE (11:37)
[2024-08-15 11:38] LABS: CHLORIDE 118 mmol/L (98-107); GLUCOSE,RANDOM 116 mg/dL (74-106); SODIUM 137 mmol/L (136-145)
[2024-08-15] MEDS: INSULIN REGULAR HUMAN 100 UNITS/ML *VIAL IVPUSH ONE (11:38)
[2024-08-15] MEDS: CALCIUM GLUCONATE 10% - 1,000 MG/10 ML VIAL IVPUSH ONE (11:38)
[2024-08-15 11:41] LABS: CREATININE 2.4 mg/dL (0.55-1.3)
[2024-08-15 11:43] LABS: ANION GAP 4 mmol/L (4-13); POTASSIUM 7.6 mmol/L (3.5-5.1)
[2024-08-15 12:57] LABS: N-TERMINAL BNP 3746.8 pg/ml (5-450)
[2024-08-15 15:39] LABS: POTASSIUM 5.5 mmol/L (3.5-5.1)
[2024-08-15 15:41] LABS: BLOOD UREA NITROGEN 67.1 mg/dL (7-18); CALCIUM 9.7 mg/dL (8.5-10.1)
[2024-08-15 15:45] LABS: CREATININE 2.7 mg/dL (0.55-1.3)
[2024-08-15] MEDS: INSULIN ASPART SLIDING SCALE (NOVOLOG) 1 VIAL SQ SCH (16:34)
[2024-08-15] MEDS: ATORVASTATIN CA 40 MG TABLET (FP) PO SCH (21:13)
[2024-08-15] MEDS: MONTELUKAST NA 10 MG TABLET PO SCH (21:13)
[2024-08-16 06:51] LABS: ABSOLUTE IMMATURE GRANULOCYTES 0.08 x10^3/uL (0.0-0.031); BASOPHILS # 0.08 x10^3/uL (0.01-0.08); EOSINOPHIL % 0.6 % (0.8-7.0); EOSINOPHILS # 0.08 x10^3/uL (0.04-0.54); HEMATOCRIT 32.8 % (40.1-51.0); HEMOGLOBIN 10.4 g/dL (13.7-17.5); MCHC 31.7 g/dl (32.3-36.5); MEAN CELL VOLUME 95.1 fl (79.0-92.2); MEAN PLT VOLUME 11.1 fl (9.4-12.4); MONOCYTE # 1.07 x10^3/uL (0.30-0.82); MONOCYTE % 8.6 % (5.3-12.2); PLATELET COUNT 218 x10^3/uL (163-337); RDW 14.2 % (12.6-16.6)
[2024-08-16 06:56] LABS: POTASSIUM 5.5 mmol/L (3.5-5.1)
[2024-08-16 07:00] LABS: MAGNESIUM 1.3 mg/dL (1.8-2.4)
[2024-08-16 07:01] LABS: CALCIUM 9.4 mg/dL (8.5-10.1)
[2024-08-16 07:02] LABS: BLOOD UREA NITROGEN 71.1 mg/dL (7-18)
[2024-08-16 07:03] LABS: CREATININE 3.1 mg/dL (0.55-1.3)
[2024-08-16 07:05] LABS: PHOSPHOROUS 2.8 mg/dL (2.5-4.9); TOT PROT 6.1 g/dl (6.4-8.2)
[2024-08-16 07:06] LABS: BILIRUBIN,TOTAL 0.4 mg/dL (0.2-1)
[2024-08-16] MEDS: FUROSEMIDE 40 MG TABLET (FP) PO SCH (09:27)
[2024-08-16] MEDS: ACETAMINOPHEN 1000 MG/100 ML BAG IVPB ONE (10:35)
[2024-08-16 12:18] VITALS: BMI 16.5
[2024-08-16] MEDS: MAGNESIUM 2GM/50ML STERILE WATER IVPB IVPB ONE (14:03)
[2024-08-16] MEDS: SODIUM ZIRCONIUM CYCLOSILICATE (LOKELMA) 5 GM PACKET PO SCH (21:30)
[2024-08-17 07:33] LABS: ABSOLUTE IMMATURE GRANULOCYTES 0.06 x10^3/uL (0.0-0.031); BASOPHILS # 0.08 x10^3/uL (0.01-0.08); EOSINOPHIL % 1.4 % (0.8-7.0); EOSINOPHILS # 0.17 x10^3/uL (0.04-0.54); HEMATOCRIT 31.4 % (40.1-51.0); MCHC 31.8 g/dl (32.3-36.5); MEAN CELL VOLUME 94.6 fl (79.0-92.2); MEAN PLT VOLUME 11.3 fl (9.4-12.4); MONOCYTE % 7.7 % (5.3-12.2); PLATELET COUNT 227 x10^3/uL (163-337); RDW 14.1 % (12.6-16.6)
[2024-08-17 08:21] LABS: POTASSIUM 4.5 mmol/L (3.5-5.1)
[2024-08-17 08:32] LABS: BLOOD UREA NITROGEN 75.4 mg/dL (7-18); CALCIUM 9.4 mg/dL (8.5-10.1)
[2024-08-17 08:36] LABS: CREATININE 3.2 mg/dL (0.55-1.3)
[2024-08-17 08:37] LABS: BILIRUBIN,TOTAL 0.3 mg/dL (0.2-1); TOT PROT 6.1 g/dl (6.4-8.2)
[2024-08-17 09:48] VITALS: RESP 18
[2024-08-17 14:05] LABS: MAGNESIUM 1.8 mg/dL (1.8-2.4)
[2024-08-17 15:36] VITALS: BP 121/73; PULSE 84; TEMP 98.2
== END 2024-08-17 18:27 | disposition home or self-care (01) | DRG 640 ==
LOC: JER 16:31 → JERBED 22:25 → J4W 08-15 01:41
PROVIDERS: ADMIT Internal Medicine; ATTEND Internal Medicine
DX: E87.5 Hyperkalemia (principal); E43 Unspecified severe protein-calorie malnutrition; N17.9 Acute kidney failure, unspecified; I24.89 Other forms of acute ischemic heart disease; R64 Cachexia; Z68.1 Body mass index [BMI] 19.9 or less, adult; G30.9 Alzheimer's disease, unspecified; F02.80 Dementia in other diseases classified elsewhere, unspecified severity, without behavioral disturbance, psychotic disturbance, mood disturbance, and anxiety; I12.9 Hypertensive chronic kidney disease with stage 1 through stage 4 chronic kidney disease, or unspecified chronic kidney disease; N18.9 Chronic kidney disease, unspecified; R00.1 Bradycardia, unspecified; M10.9 Gout, unspecified; I25.2 Old myocardial infarction; N40.0 Benign prostatic hyperplasia without lower urinary tract symptoms; R79.89 Other specified abnormal findings of blood chemistry; E87.20 Acidosis, unspecified; D64.9 Anemia, unspecified
CPT/HCPCS: 36415; 71045-TC-FY; 76775-TC; 80048; 80053; 80061; 82533; 82962; 83036; 83690; 83735; 83880; 84100; 84132; 84439; 84443; 84484; 85025; 93005; 93010; 93306-TC; 93308; 94640; 97116-GP; 97162-GP; 99291; J0131